=== PATIENT | male | born 1960 | race Hispanic/Latino ===

== ENCOUNTER 2019-03-22 16:04 | Emergency (ER) | payer SELFPAY ==
[~2019-03-22] VITALS: Ht 167.6 cm; Wt 80.0 kg
[2019-03-22 18:49] LABS: HEMATOCRIT 34.7 % (39.0-50.0); HEMOGLOBIN 12.2 g/dl (14.0-18.0); IMMATURE GRANULOCYTES 2.7 % (0.0-5.0); MEAN CELL VOLUME 103.9 fL CALC (80.0-100.0); MEAN CORPUSCULAR HGB 36.5 pG CALC (26.0-32.0); MEAN CORPUSCULAR HGB CONC 35.2 g/L CALC (32.0-36.0); NEUT# 15.54 thou/uL (1.82-7.42); RED BLOOD COUNT 3.34 mill/uL (4.70-6.10); RED CELL DISTRI WIDTH 14.3 % (11.5-15.5)
[2019-03-22 19:03] LABS: ACT PARTIAL THROMBO TIME 39.4 SECONDS (20.0-32.5); ALKALINE PHOSPHATASE 107 u/l (38-126); BUN 27 mg/dL (9-20); BUN/CREATININE RATIO 19 (12-20 (CALC)); CARBON DIOXIDE 23 mmol/l (22-30); CREATININE 1.4 mg/dL (0.7-1.3); GFR 52 ML/MIN (>=60 (CALC)); GFR FOR AFR.AMER. > 60 ML/MIN (>=60 (CALC)); INTERNATIONAL NORMALIZED RATIO 1.9 RATIO (0.7-1.3); PROTHROMBIN TIME 19.1 SECONDS (9.0-12.5); SGOT/AST 67 u/l (17-59); TOTAL PROTEIN 7.1 g/dL (6.3-8.2)
[2019-03-22 19:11] LABS: ALBUMIN 2.6 g/dL (3.2-5.0); ANION GAP 16 (6-22 (CALC)); BILIRUBIN, TOTAL 10.2 mg/dL (0.0-1.4); CHLORIDE 93 mmol/l (95-108); POTASSIUM 3.3 mmol/l (3.5-5.1); SODIUM 129 mmol/l (137-146)
[2019-03-22 21:53] LABS: URINE BLOOD DIPSTICK MODERATE (NEGATIVE); URINE COLOR BROWN; URINE GLUCOSE - DIPSTICK 100 mg/dL (NEGATIVE); URINE KETONE 15 mg/dL (NEGATIVE); URINE LEUK ESTERASE TRACE (NEGATIVE); URINE PROTEIN - DIPSTICK 30 mg/dL (NEG-TRACE); URINE SPECIFIC GRAVITY 1.025
[2019-03-22 21:56] LABS: URINE BILIRUBIN - DIPSTICK LARGE (NEGATIVE); URINE NITRITE - DIPSTICK POSITIVE (Negative)
[2019-03-22 22:01] LABS: URINE AMORPH SEDIMENT MODERATE hpf (NONE-FER); URINE BACTERIA FEW hpf; URINE RENAL EPITHELIAL CELLS MODERATE hpf
[2019-03-23 01:12] VITALS: BP 114/58
== END 2019-03-23 01:12 | disposition short-term general hospital (02) | DRG 603 ==
LOC: ED 16:04
PROVIDERS: Family Medicine
DX: L03.116 Cellulitis of left lower limb (principal); K70.31 Alcoholic cirrhosis of liver with ascites
CPT/HCPCS: Q9967

== ENCOUNTER 2019-05-08 00:59 | Emergency (ER) | payer SELFPAY ==
[~2019-05-08 00:59] MED LIST: ALDACTONE25 MG OR; DOESN'T KNOW MEDS; LASIX40 MG OR; NADOLOL20 MG OR; NO HOME MEDS; SPIRONOLACT100 MG OR
[2019-05-08 03:32] VITALS: BP 121/70
== END 2019-05-08 03:41 | disposition home or self-care (01) | DRG 605 ==
LOC: ED 00:59
DX: S81.802A Unspecified open wound, left lower leg, initial encounter (principal); L03.116 Cellulitis of left lower limb; X58.XXXA Exposure to other specified factors, initial encounter

== ENCOUNTER 2019-05-27 11:11 | Inpatient (IN) | payer SELFPAY ==
[~2019-05-27] VITALS: Ht 167.6 cm; Wt 73.2 kg
--- NOTE | 2019-05-27 11:11 | NUR ---
PT TO ROOM VIA EMS.
--- NOTE | 2019-05-27 11:15 | NUR ---
PT PRESENTS WITH ALTERED MENTAL STATUS AND COVERED IN SATURATED HOME COVERS WITH URINE. PT HAS A PUNGNANT ODOR COMING FROM WOUND IN LEFT MID RHODES. PT HAS A DRESSING HARD FROM WOUND SATURATION CONTENTS. PT OPENS EYES WITH VERBAL STIMULATION, GAZES INTO SPACE AND DOES NOT SAY ANY WORDS, ONLY OCCATIONAL MOANING. PT REACTS TO PAIN. WOUND VAC HAD AN ADVISORY ON IT STATING A LEAK IN SEALANT. THERE WERE WHITE CONTENTS IN VAC SPACE. UPON REMOVING SEALANT, THE WOUND HAD A MALODOR AND THE WOUND WAS SEAPING MILKY BROWN-BLOOD. THE WOUND MEASURED 15 CM ROBERTO AND WIDTH OF 22 CM AN INCH FROM BEING COMPLETELY CIRCUMFRENTIAL. IT IS ABOUT 1.5 CM IN DEPTH. NO APIDOSE TISSUE NOTED, ONLY MUSCLE WITH WHITISH GREENISH BOARDERS. PULSE UNDETECTED BUT CAP REFILL AT 4 SECS. PT AFIBRILE AT 98.3 F RECTAL TEMP. WILL CONTINUE TO MONITOR. APPARENT.
--- NOTE | 2019-05-27 12:20 | NUR ---
PT RESTING WITH EYES CLOSED. PT CHANGED OUT OF SATURATED CLOTHING AND GOWN PUT ON. PT CONTINUES TO HAVE ALTERED MENTAL STATUS AND REACTIVE TO VERBAL STIM AND PAIN.
[2019-05-27 12:37] LABS: HEMATOCRIT 31.9 % (39.0-50.0); HEMOGLOBIN 11.3 g/dl (14.0-18.0); IMMATURE GRANULOCYTES 0.2 % (0.0-5.0); MEAN CELL VOLUME 100.9 fL CALC (80.0-100.0); MEAN CORPUSCULAR HGB 35.8 pG CALC (26.0-32.0); MEAN CORPUSCULAR HGB CONC 35.4 g/L CALC (32.0-36.0); NEUT# 5.12 thou/uL (1.82-7.42); RED BLOOD COUNT 3.16 mill/uL (4.70-6.10); RED CELL DISTRI WIDTH 14.2 % (11.5-15.5)
[2019-05-27 13:14] LABS: URINE BILIRUBIN - DIPSTICK NEGATIVE (NEGATIVE); URINE BLOOD DIPSTICK TRACE-INTACT (NEGATIVE); URINE COLOR YELLOW; URINE GLUCOSE - DIPSTICK NEGATIVE (NEGATIVE); URINE KETONE NEGATIVE (NEGATIVE); URINE LEUK ESTERASE NEGATIVE (NEGATIVE); URINE NITRITE - DIPSTICK NEGATIVE (Negative); URINE PROTEIN - DIPSTICK NEGATIVE (NEG-TRACE); URINE SPECIFIC GRAVITY 1.015
--- NOTE | 2019-05-27 13:30 | NUR ---
PT LAYING IN BED WITH ANTIBIOTICS INFUSING IN BOTH IVS ONE IN EACH ARM PATENTLY. WILL CONTINUE TO MONITOR. PT CONTINUES WITH ALTERED MENTAL STATUS AND IS RESTING WITH EYES CLOTHES.
[2019-05-27 14:01] LABS: BARBITURATES NEGATIVE (NEGATIVE); COCAINE NEGATIVE (NEGATIVE); METHADONE NEGATIVE (NEGATIVE); OXCYCODONE NEGATIVE (NEGATIVE); TETRAHYDROCANNABIONOL NEGATIVE (NEGATIVE); TRICYLIC ANTIDEPRESSANTS NEGATIVE (NEGATIVE)
--- NOTE | 2019-05-27 14:30 | NUR ---
PT RESTING WITH EYES CLOTHES, ANOTHER EKG REPEATED PER MD ORDERS. PT REPOSITIONED
[2019-05-27 14:45] LABS: ALBUMIN 2.7 g/dL (3.2-5.0); ALKALINE PHOSPHATASE 101 u/l (38-126); BUN 12 mg/dL (9-20); BUN/CREATININE RATIO 21 (12-20 (CALC)); CARBON DIOXIDE 20 mmol/l (22-30); CREATININE 0.6 mg/dL (0.7-1.3); GFR > 60 ML/MIN (>=60 (CALC)); GFR FOR AFR.AMER. > 60 ML/MIN (>=60 (CALC)); POTASSIUM 3.8 mmol/l (3.5-5.1); SGOT/AST 31 u/l (17-59); SODIUM 135 mmol/l (137-146); TOTAL PROTEIN 7.1 g/dL (6.3-8.2)
[2019-05-27 14:47] LABS: ANION GAP 10 (6-22 (CALC)); BILIRUBIN, TOTAL 4.4 mg/dL (0.0-1.4); CHLORIDE 109 mmol/l (95-108)
[2019-05-27 14:57] LABS: MYOGLOBIN 43 ng/mL (0 - 121)
--- NOTE | 2019-05-27 15:30 | NUR ---
PT RESTING WITH EYES CLOSED
--- NOTE | 2019-05-27 15:59 | NUR ---
PT MORE ALERT, AND IS RESPONDING TO QUESTIONS WITH A SLURRED SPEACH. PT IS ABLE TO SAY HIS FIRST NAME BUT CANNOT RECOLLECT LAST NAME, , OR WHERE HE IS AT. PT DENIES REMEMBERING HOW HE GOT TO THE HOSPITAL. PT DENIES ANY PAIN. WILL CONTINUE TO MONITOR.
[2019-05-27 16:18] LABS: INTERNATIONAL NORMALIZED RATIO 1.5 RATIO (0.7-1.3); PROTHROMBIN TIME 15.7 SECONDS (9.0-12.5)
--- NOTE | 2019-05-27 16:40 | NUR ---
PT RESTING WITH EYES CLOSED
--- NOTE | 2019-05-27 17:40 | NUR ---
PT ALERT TO NAME FIRST AND LAST, ALSO PLACE. PT IS UNABLE TO SAY OR YEAR. PT IS AWAKE AND WATCHING TV. WILL CONTINUE TO MONITOR
--- NOTE | 2019-05-27 18:01 | NUR ---
ATTEMPTED TO CALL FOR REPORT NO ANSWER.
--- NOTE | 2019-05-27 18:51 | NUR ---
GAVE REPORT TO MARGO
--- NOTE | 2019-05-27 18:58 | NUR ---
PT TRANSPORTED TO [facility] SURG STABLE AND IN NO DISTRESS. PT CARE ASSUMED TO MARGO Admission Note Report Given to: Transported by: Wheelchair X Stretcher Transported with: X Nurse Transporter X Patent IV O2 X Adobe Layer Helper Location: ICU X MS2
[2019-05-27 19:00] VITALS: BP 144/80
--- NOTE | 2019-05-27 20:00 | NUR ---
PATIENT ADMITTED FROM ER VIA STRETCHER WITH ER STAFF IN ATTENDANCE. PATIENT IS LETHARGIC, VATICAN CITIZEN SPEAKING ONLY. NEPHEW AND FRIEND IN TO VISIT. PATIENT WITH IV SITE TO RIGHT AC-IVF NS HUNG AND INFUSING AT 150CC/HR. SALINE LOCK TO LEFT AC-SITE IS HEALTHY. EMS SITE. DRESSING TO LLE INTACT. FAMILY STATES THAT THEY CALLED THE EMS AFTER FINDING PATIENT AT HOME LETHARGIC AND CONFUSED. NOT REPONSIVE. STATES THAT THE PATIENT ALSO HAS HISTORY OF LIVER DISEASE. STATES THAT THE PATIENT WAS DISCHARGED FROM [facility] A COUPLE OF WEEKS AGO AFTER BEING THERE FOR OVER 2MONTHS FOR WOUND CARE TO LLE AND BALJEET MOONEY. STATES THAT THE LLE WOUND STARTED A COUPLE OF MONTHS AGO WHEN WORKING AT LOCAL [employer] AND HAD SPIDER BITE. STATES THAT AFTER DISCHARGED FROM [facility] THE PATIENT WAS GOING WEEKLY ON TUESDAYS BACK TO [facility] FOR WOUND CARE WITH WOUND VAC. FAMILY STATES THAT THE PATIENT WAS FINE ON WEDNESDAY BUT BECAME ALTER JUST TODAY-SAT. PATIENT IS ORIENTED TO SELF ANDKNOWS THAT HE IS IN [place]. IS UNABLE TO STATE HIS FULL NAME OR . FREGOSO CATH IS PATENT AND DRAINING DARK MARILYN URINE. PATIENT IS JAUNDICE WITH YELLOW SCLERA. STATES THAT HE IS HUNGRY. PATIENT TAKING PO FLUIDS AND TOLERATING WELL. ANOTHER LACTIC ACID WAS DRAWN PER MD ORDER AND PROTOCOL. ATTEMPT TO ORIENT PATIENT TO ROOM AND SURROUNDINGS. ATTEMPTED TO INSTRUCT ON USE OF NURSE CALL LIGHT SYSTEM AND TV REMOTE. CALL LIGHT IN REACH. BED ALRM IN PLACE FOR SAFETY. WILL CONT TO MONITOR.
--- NOTE | 2019-05-27 21:30 | NUR ---
PATIENTRESTING IN BED EATING TURKEY DINNER-MORE AWAKE. NO PROBLEMS WITH EATING. LACTIC ACID IS 2.3-NEXT LACTIC ORDERED FOR 0130 PER MD. DOCTOR AWARE OF THE TREND. BED ALARM IN PLACE. CALL LIGHT IN REACH. WILL CONT TO MONITOR.
[2019-05-27 23:59] VITALS: BP 121/66
[2019-05-28 04:08] VITALS: BP 118/66
--- NOTE | 2019-05-28 04:54 | NUR ---
PATIENT RESTING IN BED-AWAKE ALERT ORIENTED TO SELF, KNOW HE IS IN [place]. MORE ALERT THAN WHEN HE GOT HERE LAST NIGHT. STILL IS NOT ABLE TO GIVE HIS DATE OF . DRESSING REMOVED FRO LLE WOUNDS-LARGE ANTERIOR AND POSTERIOR WOUNDS. SMALL AMT OF BROWNISH RED DRAINAGE. WOUND BED RED WITH A FEW SMALL AREA OF YELLOW SLOUGH AT THE EDGES. WOUNDS CLEANSED WITH NS AND WET TO DRY NS DRESSINGS APPLIED. COVERED WITH ABDS AND SECURED WITH KERLIX. DRESSINGS WERE SECURED WITH LARGE SURGIFLEX. PHOTOS WERE TAKEN. ELEVATED LLE ELEVATED ON PILLOW. PATIENT DENIES ANY PAIN AT THIS TIME. C/O "HEARTBURN" PROVIDED WITH GINGERALE AND TOLERATING WELL. FREGOSO PATENT AND DRAINING DARK MARILYN URINE. IVF PATENT AND INFUSING VIA RIGHT AC SITE AT 150CC/HR. WATCHING TV. CALL LIGHT IN REACH. WILL CONT TO MONITOR.
[2019-05-28 07:33] VITALS: BP 123/74
--- NOTE | 2019-05-28 07:33 | NUR ---
PT SLEEPING IN BED. AWAKENED TO DO ASSESSMENT. ASKED PT FOR NAME AND PT WAS ABLE TO PROVIDE INFORMATION. WHEN ASKED WHERE HE WAS PT WAS ABLE TO SAY "[place]" AT THE HOSPITAL. PT STATES THAT HE DOES NOT REMEMBER HOW HIS LEG WOUND BEGUN, BUT THAT HE BELIEVES IT IS CORRELATED WITH HIS JOB AT THE [employer]. WHEN ASKED HOW HE IS FEELING, PT STATES HE IS FEELING GOOD AND DENIES ANY PAIN. PER PT HE HAS NOT HAD AN ALCOHOLIC BEVERAGE IN A "WHILE". JAUNDICE NOTED TO THE SCLERA OF BOTH EYES. FREGOSO CATHETER IN PLACE DRAINING VIA GRAVITY WITH YELLOW URINE NOTED IN TUBING AND A DARKER URINE NOTED IN FREGOSO COLLECTION BAG. LT LEG WOUND DRESSING CDI WITH NO SHADOWING PRESENT.PT DENIES ANY NEEDS AT THIS TIME. ABLE TO FOLLOW COMMANDS. DISCUSSED POC.ASSESSMENT COMPLETED. CALL LIGHT IN REACH. CONTINUE TO MONITOR.
--- NOTE | 2019-05-28 10:40 | NUR ---
SHAUNNA MOSCOSO AT BEDSIDE DISCUSSING POC
[2019-05-28 11:44] LABS: HEMOGLOBIN 9.9 g/dl (14.0-18.0); MEAN CELL VOLUME 103.9 fL CALC (80.0-100.0); MEAN CORPUSCULAR HGB 35.5 pG CALC (26.0-32.0); MEAN CORPUSCULAR HGB CONC 34.1 g/L CALC (32.0-36.0); RED BLOOD COUNT 2.79 mill/uL (4.70-6.10); RED CELL DISTRI WIDTH 14.1 % (11.5-15.5)
[2019-05-28 11:51] VITALS: BP 122/68
--- NOTE | 2019-05-28 12:41 | NUR ---
IN ROOM WITH SHAUNNA MOSCOSO AND DR ROBLES. PT UNABLE TO RECALL HIS AT THIS TIME OR HIS EXACT LOCATION. REORIENTED PT TO PLACE, SELF AND TIME. WHEN ASKED IF HE DID NOT REMEMBER HIS BIRTHDAY HE CONTINUED TO SAY "7" .
--- NOTE | 2019-05-28 13:16 | NUR ---
LANA IV INTITIATED. ASKED PT TO STATE HIS NAME AND , PT STATED NAME CORRECTLY BUT WAS UNABLE TO GIVE CORRECT , REORIENTED PT. PT DENIES ANY PAIN AT THIS TIME.
--- NOTE | 2019-05-28 15:04 | NUR ---
S: FIORDALIZA COLON is a 59 M who presents with ams. He has a history of LEG WOUND . All medications in patient's chart were reviewed. O: VS: BP 122/68 P 75, RR 16,T 98 W 73kg>, HT66 IN>, Scr=0.6,CrCl= >90ml/min> A: Blood culture <is pending/show> which is sensitive to <>. Urine culture <is pending/show> which is sensitive to <>. P: Patient is on VANCOMYCIN AND ZOSYN 3.375 Q6H . Vancomycin ordered for pharmacy to dose. Start Vancomycin 1250MG IV Q12H. Vancomycin trough is drawn before the 4th dose on 05/29/19 @0030. Vancomycin goal trough is between <10-15 mcg/ml>. Pharmacy will follow and or advise on antibiotics use as needed. MITCHELL PERRY PHARMD
[2019-05-28 15:10] VITALS: BP 142/81
--- NOTE | 2019-05-28 18:00 | NUR ---
DRESSING CHANGE TO LLE. PT TOLERATED WELL
[2019-05-28 18:39] VITALS: BP 119/71
--- NOTE | 2019-05-28 20:00 | NUR ---
ADDENDUM, PT SR 80'S ON TELE. LAST SET OF VS @ 1839- 97.4, 87bpm, RR19, B/P 119/71mmHg, O2 SAT 100% ON ROOM AIR.
--- NOTE | 2019-05-28 20:00 | NUR ---
PT SLEEPING, APPEARS COMFORTABLE AND IN NO DISTRESS. WAKES EASILY. ASSESMENT COMPLETE. PT IS A/OX3 @ THIS TIME W/ NEG CIWA. IV SITES INTACTX2 TO B/L AC'S. NS INFUSING @150ML/H. DRESSING TO LLE REMAINS C/D/I. PT DENIES PAIN OR DISCOMFORT. FREGOSO TUBING SECURED, UNKINKED, AND UNOBSTRUCTED. PLAN OF CARE REVIEWED, PT VERBALIZES UNDERSTANDING AND DENIES QUESTIONS @ THIS TIME. PT REQUEST SODA,RUPINDER SURESH PROVIDED. DENIES FURTHER NEEDS @ THIS TIME. CALL GAY WITHIN REACH, AGREES TO CALL PRN. BED IN LOW POSITION W/ BEDRAILS UPX2 AND BED ALARM ON.
--- NOTE | 2019-05-28 22:31 | NUR ---
PT APPEARS TO BE SLEEPING COMFORTABLY, NO APPARENT DISTRESS. RESP REG&UNLABORED. CALL GAY REMAINS WITHIN REACH. SAFETY AND FALL PRECAUTIONS REMAIN IN PLACE/UNCHANGED.
[2019-05-28 23:55] VITALS: BP 116/66
--- NOTE | 2019-05-29 | NUR ---
PT SLEEPING, APPEARS COMFORTABLE AND IN NO DISTRESS. RESP REG&UNLABORED. WAKES EASILY. NO CHANGES IN PHYSICAL ASSESMENT. VS ASSESED, VS STABLE- 97.9F,89bpm RR21,119/71mmHg,[id number]%ON RA, SR90'S ON TELE. DENIES PAIN. DENIES NEEDS AT THIS TIME. SAFETY AND FALL PRECAUTION REMAIN IN PLACE. CALL GAY WITHIN REACH, AGREES TO CALL PRN.
--- NOTE | 2019-05-29 00:30 | NUR ---
RADIO MACHINIST IN ROOM TO DRAW PT'S VANCO TROUGH LEVEL.
--- NOTE | 2019-05-29 01:00 | NUR ---
PT REPORTS NAUSEA AND FEELS LIKE HE HAS TO HAVE A BM. EMESIS BASIS PROVIDED. ASSISTED UP TO BATHROOM, +1 STANDY ASSIST, GAIT IS UNSTEADY. PT PASSED LARGE AMOUNT LIQUID STOOL. PARTIAL BED BATH AND LINEN CHANGE COMPLETE. PT BACK IN BED.STATES NAUSEA HAS PASSED. EMESIS BAG PROVIDED. DENIES FURTHER NEEDS. CALL GAY WITHIN REACH, AGREES TO CALL PRN.
--- NOTE | 2019-05-29 01:42 | NUR ---
VANCO TROUGH LEVEL RECEIVED, LEVEL IS 11. VANCO GIVEN, SEE MAR.
[2019-05-29 04:15] VITALS: BP 125/74
--- NOTE | 2019-05-29 04:20 | NUR ---
PT SLEEPING, APPEARS COMFORTABLE AND IN NO DISTRESS. RESP REG&UNLABORED. WAKES EASILY. NO CHANGES IN PHYSICAL ASSESMENT. VS ASSESED, VS STABLE- 97.2 F, 81bpm, 18RR, 119/71mmHg, [id number]% ON RA,SR 70'S ON TELE. DENIES PAIN. DENIES NEEDS AT THIS TIME. SAFETY AND FALL PRECAUTION REMAIN IN PLACE. CALL GAY WITHIN REACH, AGREES TO CALL PRN.
--- NOTE | 2019-05-29 06:00 | NUR ---
DRESSING TO LLE REMAINS C/D/I. DRESSING CHANGE HELD THIS AM. WOUND CARE CONSULTED AND EXPECTED TO COME IN AND EVALUATE WOUND.
[2019-05-29 08:00] VITALS: BP 118/71
--- NOTE | 2019-05-29 08:00 | NUR ---
PT SEEN AWAKE, ALERT, LUXEMBOURGISH ONLY. PT AMBULATORY TO BR WITH STANDBY ASSIST. LUNGS CLEAR, RA. BM THIS AM. LLE IN PLACE, IVF RUNNING. URINE MARILYN IN COLOR, FREGOSO CATHETER.
[2019-05-29 11:11] VITALS: BP 143/84
--- NOTE | 2019-05-29 12:00 | NUR ---
PT RESTS IN THE BED, NO DISTRESS. DR VALENTINE SAW PT, WOUND CARE ORDERS RECEIVED AND CARRIED OUT.
[2019-05-29 15:20] VITALS: BP 142/81
--- NOTE | 2019-05-29 16:00 | NUR ---
PT TO U/S AND BACK. PT REMAINS AT REST IN THE BED, OCCASIONAL TRIP TO THE BR WITH ASSIST FOR LOOSE BM. NO REPORT OF PAIN.
[2019-05-29 18:58] VITALS: BP 124/72
--- NOTE | 2019-05-29 19:10 | NUR ---
REPORT RECEIVED FROM FLEX VAZQUEZ. PT RESTING IN BED. NO S/S OF DISTRESS AT THIS TIME. SAFETY PRECAUTIONS IN PLACE. WILL CONTINUE TO MONITOR.
--- NOTE | 2019-05-29 21:10 | NUR ---
PT RESTING IN BED. RESPIRATIONS EVEN AND UNLABORED ON RA. LUNGS SOUND CLEAR. PEDAL PULSES WEAK. PT DENIES ANY PAIN. SAFETY PRECAUTIONS IN PLACE. WILL CONTINUE TO MONITOR.
--- NOTE | 2019-05-30 00:10 | NUR ---
PT RESTING IN BED WITH EYES CLOSED. RESPIRATIONS EVEN AND UNLABORED ON RA. NO S/S OF DISTRESS AT THIS TIME WILL CONTINUE TO MONITOR.
[2019-05-30 04:45] VITALS: BP 110/63
--- NOTE | 2019-05-30 05:12 | NUR ---
PT RESTING IN BED. FREGOSO DRAINING TO GRAVITY. RESPIRATIONS EVEN AND UNLABORED ON RA. SAFETY PRECAUTIONS IN PLACE. WILL CONTINUE TO MONITOR.
[2019-05-30 05:24] LABS: HEMATOCRIT 25.1 % (39.0-50.0); HEMOGLOBIN 8.5 g/dl (14.0-18.0); MEAN CORPUSCULAR HGB 35.6 pG CALC (26.0-32.0); MEAN CORPUSCULAR HGB CONC 33.9 g/L CALC (32.0-36.0); RED BLOOD COUNT 2.39 mill/uL (4.70-6.10); RED CELL DISTRI WIDTH 14.1 % (11.5-15.5)
[2019-05-30 05:50] LABS: ALBUMIN 2.1 g/dL (3.2-5.0); ALKALINE PHOSPHATASE 98 u/l (38-126); ANION GAP 8 (6-22 (CALC)); BUN 8 mg/dL (9-20); BUN/CREATININE RATIO 15 (12-20 (CALC)); CARBON DIOXIDE 20 mmol/l (22-30); CHLORIDE 115 mmol/l (95-108); CREATININE 0.5 mg/dL (0.7-1.3); GFR > 60 ML/MIN (>=60 (CALC)); GFR FOR AFR.AMER. > 60 ML/MIN (>=60 (CALC)); POTASSIUM 3.3 mmol/l (3.5-5.1); SGOT/AST 29 u/l (17-59); SODIUM 140 mmol/l (137-146); TOTAL PROTEIN 5.9 g/dL (6.3-8.2)
[2019-05-30 06:06] LABS: BILIRUBIN, TOTAL 2.3 mg/dL (0.0-1.4)
[2019-05-30 08:00] VITALS: BP 118/74
--- NOTE | 2019-05-30 09:00 | NUR ---
PT ALERT AND ORIENTED X 3. LUNGS CLEAR, RA. ABDOMEN DISTENDED SOFT, BM TODAY. FREGOSO CATHETER HAS BEEN REMOVED PER EDP VERBAL ORDER. URINAL AT BEDSIDE. NO DISTRESS, NO COMPLAINTS.
[2019-05-30 10:30] VITALS: BP 125/74
--- NOTE | 2019-05-30 14:00 | NUR ---
LLE DRESSING CHANGED, PT TOLERATED WELL. PT CONTINUES TO REST IN THE BED, NO DISTRESS, NO COMPLAINTS.
--- NOTE | 2019-05-30 16:06 | NUR ---
PT CONTINUES TO REST IN THE BED IN NO ACUTE DISTRESS. CASE MGMT HAS INTERVIEWED PT FOR WHEN HE IS DISCHARGED. PT IS ESTONIAN ONLY.
[2019-05-30 16:10] VITALS: BP 123/79
--- NOTE | 2019-05-30 19:10 | NUR ---
REPORT RECEIVED FROM FLEX VAZQUEZ. PT RESTING IN BED. RESPIRATIONS EVEN AND UNLABORED ON RA. NO S/S OF DISTRESS AT THIS TIME. WILL CONTINEU TO MONITOR.
[2019-05-30 19:46] VITALS: BP 118/66
--- NOTE | 2019-05-30 22:05 | NUR ---
PT RESTING IN BED, RESPIRATIONS EVEN AND UNLABORED ON RA. LUNGS SOUND CLEAR. PEDAL PULSES WEAK. SAFETY PRECAUTIONS IN PLACE. WILL CONTINUE TO MONITOR.
[2019-05-31] VITALS (7 sets, daily range): BP systolic 95–129; BP diastolic 58–81
--- NOTE | 2019-05-31 00:10 | NUR ---
PT RESTING IN BED. NO S/S OF DISTRESS AT THIS TIME. SAFETY PRECAUTIONS IN PLACE. WILL CONTINUE TO MONITOR.
--- NOTE | 2019-05-31 03:48 | NUR ---
PT RESTING IN BED. NO S/S OF DISTRESS AT THIS TIME. SAFETY PRECAUTIONS IN PLACE. WILL CONTINUE TO MONITOR.
[2019-05-31 06:01] LABS: ALKALINE PHOSPHATASE 87 u/l (38-126); ANION GAP 7 (6-22 (CALC)); BILIRUBIN, TOTAL 2.4 mg/dL (0.0-1.4); BUN 7 mg/dL (9-20); BUN/CREATININE RATIO 13 (12-20 (CALC)); CARBON DIOXIDE 20 mmol/l (22-30); CHLORIDE 114 mmol/l (95-108); CREATININE 0.5 mg/dL (0.7-1.3); GFR > 60 ML/MIN (>=60 (CALC)); GFR FOR AFR.AMER. > 60 ML/MIN (>=60 (CALC)); POTASSIUM 3.4 mmol/l (3.5-5.1); SGOT/AST 34 u/l (17-59); SODIUM 138 mmol/l (137-146); TOTAL PROTEIN 5.7 g/dL (6.3-8.2)
--- NOTE | 2019-05-31 08:00 | NUR ---
PT IS AWAKE, ALERT, ORIENTED. PT AMBULATORY IN ROOM WITH STANDBY ASSIST. LUNGS CLEAR, RA. PT SHOWERED THIS MORNING, TOLERATED WELL.
--- NOTE | 2019-05-31 13:00 | NUR ---
PT HAS BEEN SEEN BY DR VALENTINE FROM WOUND CARE, DRESSING CHANGED. SHE ASKED THAT NO DRESSING CHANGES UNTIL WEDNESDAY WHEN SHE COMES AGAIN. PT TAKING NAPS OFF AND ON TODAY.
--- NOTE | 2019-05-31 17:10 | NUR ---
PT CONTINUES SLEEPING THROUGHOUT THE DAY, WAKENING TO USE BR. NO COMPLAINTS, NO DISTRESS NOTED.
--- NOTE | 2019-05-31 21:15 | NUR ---
ASSESMENT COMPLETE. VS ELLIE, VSS-98.3F, 87bpm, 18RR, 129/81mmHg, 100% ON RA. SINUS RYTHM 90S ON TELEMETRY. PLAN OF CARE REVIEWED. PT VERBALIZES UNDERSTANDING DENIES QUESTIONS. REPORTS NAUSEA, AND HEARTBURN. PT ATTRIBUTES SYMPTOMS TO LACTULOSE. SPOKE W/ DR. ROBLES AND ORDERS RECEIVED FOR ZOFRAN, PROTONIX AND TUMS, SEE MAR. PT DENIES PAIN OR DISCOMFORT. PT DENIES FURTHER NEEDS @ THIS TIME. CALL GAY WITHIN REACH, AGREES TO CALL PRN. BED LOCKED IN LOW POSITION W/ TOP BEDRAILS UPX2. PT'S ITEMS WITHIN REACH.
--- NOTE | 2019-05-31 23:45 | NUR ---
PT APPERS TO BE SLEEPING COMFORTABLY. NO APPARENT DISTRESS. RESP REG & UNLABORED. PT WAKES EASILY. NO CHANGE FROM INITIAL ASSESMENT. DENIES NEEDS @ THIS TIME. REPORTS NAUSEA AND HEART BURN RESOLVED. CALL GAY WITHIN REACH, AGREES TO CALL PRN. SAFETY/FALL INTERVENTIONS REMAIN IN PLACE. REMAINS SR IN THE 90'S ON TELEMETRY. VS REMAIN STABLE 99.3F, 88bpm, RR20, 117/73mmHg, 97% ON RA.
[2019-06-01 03:50] VITALS: BP 119/70
--- NOTE | 2019-06-01 04:10 | NUR ---
PT APPERS TO BE SLEEPING COMFORTABLY. NO APPARENT DISTRESS. RESP REG & UNLABORED. PT WAKES EASILY. NO CHANGE FROM INITIAL ASSESMENT. VS ASSESED, VSS-98.7F, 68bpm, 20RR, 119/70mmHg, 100% ON RA. NSR 80'S ON TELEMETRY. DENIES NEEDS @ THIS TIME. CALL GAY WITHIN REACH, AGREES TO CALL PRN. BED LOCKED IN LOW POSITION W/ TOP BEDRAILS UPX2. PT'S ITEMS WITHIN REACH.
[2019-06-01 07:30] VITALS: BP 106/64
--- NOTE | 2019-06-01 07:30 | NUR ---
PATIENT A/OX4, NO C/O PAIN, NO S/S RESP DISTRESS, PATIENT ON ROOM AIR, PATIENT HEART RHYTHM NORMAL SINUS, PATIENT ABD SOFT AND DISTENTED, PATIENT ON LACTOSE TO TREAT AMMONIA LEVEL, CIWA 0, PATIENT LAST BOWEL MOVEMENT 05/31/19, WILL CONTINUE TO MONITOR PATIENT, CALL LIGHT WITHIN REACH
[2019-06-01 11:25] VITALS: BP 117/70
--- NOTE | 2019-06-01 12:00 | NUR ---
PATIENT A/O X4, NO S/S RESP DISTRESS, PATIENT ON ROOM AIR, PATIENT NO C/O PAIN, PATIENT HEART RHYTHM IS NORMAL SINUS, PATIENT TOLERATED IV ANTIBOTICS, WILL CONTINUE TO MONITOR PATIENT CALL LIGHT WITHIN REACH
[2019-06-01 16:10] VITALS: BP 119/66
--- NOTE | 2019-06-01 17:00 | NUR ---
PATIENT A/OX4, NO C/O PAIN, NO S/S RESP DISTRESS, PATIENT ON ROOM AIR, PATIENT HEART RHYTHM IS NORMAL SINUS, WILL CONTINUE TO MONITOR PATIENT CALL LIGHT WITHIN REACH
[2019-06-01 18:42] VITALS: BP 126/75
--- NOTE | 2019-06-01 20:00 | NUR ---
PT RESTING IN BED, NO SIGNS OF DISTRESS NOTED, RESP EVEN AND UNLABORED. PT SWEDISH SPEAKING ONLY, CARDIAC CATH TECHNOLOGIST SPEAKS SWEDISH. DISCUSSED POC, PT VERBALIZED UNDERSTANDING. DRESSING TO LLE BLOOD; SHADOWING NOTED TO DRESSING. OLD DRESSING REINFORCED WITH [place] WRAP. PT TOLERATED WELL, ASSESSMENT COMPLETED, CALL LIGHT IN REACH,CONTINUE TO MONITOR.
--- NOTE | 2019-06-01 23:15 | NUR ---
PT RESTING IN BED, IV ANTIBIOTIC HUNG, PT VOICES NO NEEDS OR COMPLAINTS AT THIS TIME,CALL LIGHT IN REACH,CONTINUE TO MONITOR.
[2019-06-02 00:08] VITALS: BP 101/53
[2019-06-02 04:10] VITALS: BP 100/54
--- NOTE | 2019-06-02 04:35 | NUR ---
PT RESTING IN BED WITH EYES CLOSED, NO SIGNS OF DISTRESS NOTED, RESP EVEN AND UNLABORED. CALL LIGHT IN REACH,CONTINUE TO MONITOR.
[2019-06-02 05:52] LABS: HEMATOCRIT 26.6 % (39.0-50.0); MEAN CELL VOLUME 105.6 fL CALC (80.0-100.0); MEAN CORPUSCULAR HGB 35.7 pG CALC (26.0-32.0); MEAN CORPUSCULAR HGB CONC 33.8 g/L CALC (32.0-36.0); RED BLOOD COUNT 2.52 mill/uL (4.70-6.10); RED CELL DISTRI WIDTH 13.8 % (11.5-15.5)
[2019-06-02 06:08] LABS: INTERNATIONAL NORMALIZED RATIO 1.7 RATIO (0.7-1.3); PROTHROMBIN TIME 17.4 SECONDS (9.0-12.5)
[2019-06-02 06:13] LABS: ALKALINE PHOSPHATASE 76 u/l (38-126); ANION GAP 9 (6-22 (CALC)); BILIRUBIN, TOTAL 2.6 mg/dL (0.0-1.4); BUN 7 mg/dL (9-20); BUN/CREATININE RATIO 13 (12-20 (CALC)); CARBON DIOXIDE 21 mmol/l (22-30); CHLORIDE 111 mmol/l (95-108); CREATININE 0.5 mg/dL (0.7-1.3); GFR > 60 ML/MIN (>=60 (CALC)); GFR FOR AFR.AMER. > 60 ML/MIN (>=60 (CALC)); POTASSIUM 3.3 mmol/l (3.5-5.1); SGOT/AST 32 u/l (17-59); SODIUM 137 mmol/l (137-146); TOTAL PROTEIN 5.6 g/dL (6.3-8.2)
--- NOTE | 2019-06-02 07:30 | NUR ---
REPORT RECEIVED FROM BENJA LAZO. PT SITTING UPRIGHT IN BED. DENIES PAIN. REPORTING OF CONCERNS ENCOURAGED. CALL LIGHT REVIEWED AND IN REACH. PLAN OF CARE DISCUSSED. PT. GREENLANDIC SPEAKING ONLY. TRANSLATION PER BENJA LAZO.
[2019-06-02 08:06] VITALS: BP 117/72
--- NOTE | 2019-06-02 08:30 | NUR ---
DR. VALENTINE IN TO SEE PT. DRESSING TO LEFT LOWER LEG COMPLETED BY DR. VALENTINE. OK TO DISCHARGE PT. HOME AND FOLLOW UP W/ DR. VALENTINE ON WEDNESDAY @ 1499.
[2019-06-02 11:54] VITALS: BP 128/76
[2019-06-02] MEDS ORDERED: LACTULOSE10 GM/15 M PO (12:49)
[2019-06-02] MEDS ORDERED: LASIX 20 MG TAB20 MG PO (12:49)
[2019-06-02] MEDS ORDERED: PANTOPRAZOLE SO40 M1 PO (12:49)
[2019-06-02] MEDS ORDERED: AMOXICILLIN500 MG PO (12:50)
--- NOTE | 2019-06-02 13:00 | NUR ---
DR. DEAN IN TO SEE PT. DISCHARGE HOME DISCUSSED AND AGREED UPON BY BOTH.
--- NOTE | 2019-06-02 14:45 | NUR ---
DISCHARGE INSTRUCTIONS TRANSLATED BY FLEX VAZQUEZ. PT STATES UNDERSTANDING.
--- NOTE | 2019-06-02 15:00 | NUR ---
Discharge instructions given. Patient verbalizes understanding of same. Discharged in stable condition via Wheelchair to Home with *Other. All belongings sent with pt.
== END 2019-06-02 15:00 | disposition home or self-care (01) | DRG 433 ==
LOC: ED 11:11 → ED-I 17:14 → ED 17:27 → MS2 17:28
PROVIDERS: Emergency Medicine; Internal Medicine; Nurse Practitioner Family; ADMIT Internal Medicine; ATTEND Internal Medicine
PROC: 0T9B70Z Drainage of Bladder with Drainage Device, Via Natural or Artificial Opening (ICD-10-PCS; principal; 2019-05-27)
PROC: 0HDLXZZ Extraction of Left Lower Leg Skin, External Approach (ICD-10-PCS; 2019-05-31)
DX: K70.40 Alcoholic hepatic failure without coma (principal); I87.332 Chronic venous hypertension (idiopathic) with ulcer and inflammation of left lower extremity; L97.829 Non-pressure chronic ulcer of other part of left lower leg with unspecified severity; L03.116 Cellulitis of left lower limb; D68.4 Acquired coagulation factor deficiency; K70.31 Alcoholic cirrhosis of liver with ascites; F10.20 Alcohol dependence, uncomplicated; N62 Hypertrophy of breast; B95.2 Enterococcus as the cause of diseases classified elsewhere; Z87.891 Personal history of nicotine dependence
CPT/HCPCS: J3370

== ENCOUNTER 2019-06-10 17:23 | Inpatient (IN) | payer SELFPAY ==
[~2019-06-10] VITALS: Ht 167.6 cm; Wt 92.2 kg
[~2019-06-10 17:23] MED LIST changes: +AMOXICILLIN500 MG PO; +LACTULOSE10 GM/15 M PO; +LASIX 20 MG TAB20 MG PO; +PANTOPRAZOLE SO40 M1 PO
--- NOTE | 2019-06-10 17:23 | NUR ---
PT ARRIVES [place] NO DISTRESS
[2019-06-10 18:18] LABS: HEMATOCRIT 26.9 % (39.0-50.0); HEMOGLOBIN 9.1 g/dl (14.0-18.0); IMMATURE GRANULOCYTES 0.2 % (0.0-5.0); MEAN CELL VOLUME 104.3 fL CALC (80.0-100.0); MEAN CORPUSCULAR HGB 35.3 pG CALC (26.0-32.0); MEAN CORPUSCULAR HGB CONC 33.8 g/L CALC (32.0-36.0); NEUT# 2.03 thou/uL (1.82-7.42); RED BLOOD COUNT 2.58 mill/uL (4.70-6.10); RED CELL DISTRI WIDTH 14.3 % (11.5-15.5)
[2019-06-10 18:34] LABS: ACT PARTIAL THROMBO TIME 38.3 SECONDS (20.0-32.5); INTERNATIONAL NORMALIZED RATIO 1.7 RATIO (0.7-1.3); PROTHROMBIN TIME 17.1 SECONDS (9.0-12.5)
[2019-06-10 18:37] LABS: ALBUMIN 2.4 g/dL (3.2-5.0); AMYLASE 73 u/l (30-110); BUN 10 mg/dL (9-20); BUN/CREATININE RATIO 18 (12-20 (CALC)); CHLORIDE 105 mmol/l (95-108); CREATININE 0.6 mg/dL (0.7-1.3); ETHYL ALCOHOL 0 mg/dl (0-30); GFR > 60 ML/MIN (>=60 (CALC)); GFR FOR AFR.AMER. > 60 ML/MIN (>=60 (CALC)); LIPASE 146 u/l (23-300); POTASSIUM 3.7 mmol/l (3.5-5.1); SGOT/AST 34 u/l (17-59); SODIUM 136 mmol/l (137-146); TOTAL PROTEIN 6.5 g/dL (6.3-8.2)
[2019-06-10 18:38] LABS: ALKALINE PHOSPHATASE 118 u/l (38-126); ANION GAP 8 (6-22 (CALC)); CARBON DIOXIDE 27 mmol/l (22-30)
--- NOTE | 2019-06-10 18:45 | NUR ---
PT RESTING QUIETLY ON STRETCHER, WARM 8LANKET GIVEN, CALL LIGHT WITHIN REACH. [id number] VERY DISTENDED
--- NOTE | 2019-06-10 18:51 | NUR ---
VSS, PT CONTINUES TO REST WITH EYES CLOSED.
--- NOTE | 2019-06-10 20:35 | NUR ---
PT RESTING IN 8ED [id number] NO S/S OF ANY ACUTE DISTRESS NOTED AT THIS TIME.
--- NOTE | 2019-06-10 22:31 | NUR ---
PT [id number] IS VERY DISTENDED, PT STATES HAVING 0/10 PAIN IN [id number] AT THIS TIME.
[2019-06-11] VITALS (11 sets, daily range): BP systolic 117–147; BP diastolic 62–78
--- NOTE | 2019-06-11 03:13 | NUR ---
PT RESTING IN BED AT THIS TIME WITH EYES CLOSED. PT HAS NO S/S OF ANY ACUTE DISTRESS NOTED AT THIS TIME. BREATHING EASY AND UNLABORED. ABDOMEN DISTENTION PRESENT, BOWEL SOOUNDS HYPOACTIVE. PT 0/10 ON FACES PAIN SCALE.
--- NOTE | 2019-06-11 07:00 | NUR ---
SHIFT CHANGE REPORT, PT SLEEPING BUT AWAKENS TO VERBAL STIMULI, C/O "POKITO" ABDOMINAL PAIN, ALERT AND ORIENTED, DRESSING TO LEFT LOWER LEG IN PLACE WITH VISIBLE DRAINAGE UNDER DRESSING, PT STATES HIS NEXT DRESSING DAY IS TOMORROW, CALL GAY IN REACH, WILL CONTINUE TO MONITOR.
[2019-06-12 04:06] VITALS: BP 109/63
[2019-06-12 07:04] LABS: INTERNATIONAL NORMALIZED RATIO 1.6 RATIO (0.7-1.3); PROTHROMBIN TIME 16.1 SECONDS (9.0-12.5)
--- NOTE | 2019-06-12 07:25 | NUR ---
PT APPEARS TO BE SLEEPING IN SEMI FOWLERS POSITION;NO S/S OF DISTRESS NOTED;RESPIRATIONS EVEN AND UNLABORED ON RA;ALL SAFETY PRECAUTIONS IN PLACE WITH BED IN THE LOWEST POSITION AND CALL LIGHT IN REACH;WILL CONTINUE TO MONITOR
[2019-06-12 08:40] VITALS: BP 115/69
--- NOTE | 2019-06-12 08:40 | NUR ---
PT RESTING IN SEMI FOWLERS POSITION,A&O X3;PT IS ESTONIAN SPEAKING ONLY,TRANSLATION PROVIDED BY GEORGE CUTLER RN;PT DENIES ANY CURRENT PAIN OR DISCOMFORTS,PAIN SCALE AND REPORTING EDUCATED;RESPIRATIONS EVEN AND UNLABORED ON RA;ABDOMEN DISTENDED/FIRM ON PALPATION AND ACTIVE IN ALL 4 QUADRANTS;STRONG PEDAL PULSES;DRESSING TO RLE CDI;#20G TO RAC FLUSHED AND PATENT,SITE APPEARS HEALTHY;PT DENIES ANY ADDITIONAL NEEDS AND IS ENCOURAGED TO CALL FOR ASSISTANCE IF NEEDED;CALL LIGHT IN REACH;WILL CONTINUE TO MONITOR
--- NOTE | 2019-06-12 08:56 | NUR ---
INFORMED CONSENT OBTAINED AT THIS TIME FOR PARACENTESIS. TRANSLATION PROVIDED BY FLEX MONTAGUE.
[2019-06-12 10:27] LABS: URINE BILIRUBIN - DIPSTICK NEGATIVE (NEGATIVE); URINE BLOOD DIPSTICK TRACE-INTACT (NEGATIVE); URINE COLOR YELLOW; URINE GLUCOSE - DIPSTICK NEGATIVE (NEGATIVE); URINE KETONE NEGATIVE (NEGATIVE); URINE LEUK ESTERASE NEGATIVE (NEGATIVE); URINE NITRITE - DIPSTICK NEGATIVE (Negative); URINE PROTEIN - DIPSTICK NEGATIVE (NEG-TRACE); URINE SPECIFIC GRAVITY 1.015
--- NOTE | 2019-06-12 11:29 | NUR ---
AT BEDSIDE PERFORMING PARACENTISIS
--- NOTE | 2019-06-12 12:30 | NUR ---
PT APPEARS TO BE SLEEPING IN SUPINE POSITION;RESPIRATIONS EVEN AND UNLABORED ON RA;NO S/S OF DISTRESS NOTED;IV SITE PATENT;ASSESSMENT REMAINS UNCHANGED AT THIS TIME;CALL LIGHT IN REACH;WILL CONTINUE TO MONITOR
[2019-06-12 15:24] VITALS: BP 114/64
--- NOTE | 2019-06-12 15:30 | NUR ---
PT RESTING IN SEMI FOWLERS POSITION;RESPIRATIONS REMAIN EVEN AND UNLABORED ON RA;PT DENIES ANY CURRENT PAIN OR NEEDS;IV SITE PATENT;PT ENCOURAGED TO CALL FOR ASSISTANCE IF NEEDED;FALL PRECAUTIONS IN PLACE WITH CALL LIGHT IN REACH;WILL CONTINUE TO MONITOR
--- NOTE | 2019-06-12 17:30 | NUR ---
SPOKE WITH KEVYN,ANRP AT POSSIBLE WOUND CARE CONSULT. ANRP TO PLACE CONSULT FOR WOUND CARE TO [facility]
[2019-06-12 18:40] VITALS: BP 108/64
--- NOTE | 2019-06-12 19:05 | NUR ---
REPORT RECEIVED FROM BENJA OLIVERA. PT RESTING IN BED NO S/S OF DISTRESS AT THIS TIME. SAFETY PRECAUTIONS IN PLACE. WILL CONTINUE TO MONITOR.
--- NOTE | 2019-06-12 20:45 | NUR ---
PT RESTING IN BED. RESPIRATIONS EVEN AND UNLABORED ON RA. LUNGS SOUND DIMINISHED. PEDAL PULSES WEAK. PT DENIES ANY PAIN OR DISCOMFORT AT THIS TIME. SAFETY PRECAUTIONS IN PLACE. WILL CONTINUE TO MONITOR.
--- NOTE | 2019-06-13 00:54 | NUR ---
NO S/S OF DISTRESS AT THIS TIME.
--- NOTE | 2019-06-13 03:51 | NUR ---
NO S/S OF DISTRESS AT THIS TIME. WILL CONTINUE TO MONITOR
[2019-06-13 04:05] VITALS: BP 120/72
--- NOTE | 2019-06-13 07:15 | NUR ---
REPORT RECEIVED FROM FLEX REESE;PT APPEARS TO BE SLEEPING IN SEMI FOWLERS POSITION;RESPIRATIONS EVEN AND UNLABORED ON RA;NO S/S OF DISTRESS NOTED;ALL SAFETY PRECAUTIONS IN PLACE WITH BED IN THE LOWEST POSITION AND CALL LIGHT IN REACH;WILL CONTINUE TO MONITOR
[2019-06-13 08:39] VITALS: BP 102/72
--- NOTE | 2019-06-13 08:40 | NUR ---
PT RESTING IN SEMI FOWLERS POSITION,A&O X3;PT IS NOTED TO BE CZECH SPEAKING ONLY,TRANSLATION PROVIDED BY FLEX MONTAGUE;PT DENIES ANY CURRENT NEEDS,PAIN SCALE AND REPORTING EDUCATED;RESPIRATIONS EVEN AND UNLABORED ON RA;ABDOMEN DISTENDED/SOFT ON PALPATION AND ACTIVE IN ALL 4 QUADRANTS;WEAK PEDAL PULSES;DRESSING TO LLE CDI;#20G TO RAC FLUSHED AND PATENT,SITE APPEARS HEALTHY;PT DENIES ANY ADDITIONAL NEEDS AT THIS TIME AND IS ENCOURAGED TO CALL FOR ASSISTANCE IF NEEDED;FALL PRECAUTIONS IN PLACE WITH CALL LIGHT IN REACH;WILL CONTINUE TO MONITOR
--- NOTE | 2019-06-13 10:19 | NUR ---
AT BEDSIDE DISCUSSING POC WITH PT.
--- NOTE | 2019-06-13 11:35 | NUR ---
PT APPEARS TO BE SLEEPING IN SEMI FOWLERS POSITION;RESPIRATIONS EVEN AND UNLABORED ON RA;NO S/S OF DISTRESS NOTED;IV SITE PATENT;ASSESSMENT REMAINS UNCHANGED AT THIS TIME;ALL SAFETY PRECAUTIONS IN PLACE WITH BED IN THE LOWEST POSITION AND CALL LIGHT IN REACH;WILL CONTINUE TO MONITOR
[2019-06-13] MEDS ORDERED: ALDACTONE50 MG PO (14:43)
[2019-06-13] MEDS ORDERED: LASIX 20 MG TAB20 MG PO (14:43)
[2019-06-13 15:52] VITALS: BP 115/72
--- NOTE | 2019-06-13 16:40 | NUR ---
PT RESTING IN SEMI FOWLERS POSITION;RESPIRATIONS EVEN AND UNLABORED ON RA;PT DENIES ANY CURRENT PAIN OR DISCOMFORTS;IV SITE PATENT;ENCOURAGED TO CALL FOR ASSISTANCE IF NEEDED;CALL LIGHT IN REACH;WILL CONTINUE TO MONITOR
--- NOTE | 2019-06-13 19:05 | NUR ---
REPORT RECEIVED FROM BENJA OLIVERA. PT RESTING IN BED. NO S/S OF DISTRESS AT THIS TIME. SAFETY PRECAUTIONS IN PLACE. WILL CONTINUE TO MONITOR.
--- NOTE | 2019-06-13 21:15 | NUR ---
PT RESTING IN BED. RESPIRATIONS EVEN AND UNLABORED ON RA. LUNGS SOUND CLEAR. DRESSING TO LLE CDI. PT DENIES ANY PAIN AT THIS TIME. SAFETY PRECAUTIONS IN PLACE. WILL CONTINUE TO MONITOR.
[2019-06-13 21:20] VITALS: BP 113/68
--- NOTE | 2019-06-14 00:08 | NUR ---
PT RESTING IN BED NO S/S OF DISTRESS AT THIS TIME. SAFETY PRECAUTIONS IN PLACE. WILL CONTINUE TO MONITOR.
--- NOTE | 2019-06-14 03:12 | NUR ---
PT RESTING IN BED NO S/S OF DISTRESS AT THIS TIME.
[2019-06-14 04:50] VITALS: BP 109/70
--- NOTE | 2019-06-14 08:00 | NUR ---
Head to toe assessment completed. No skin issues noted. Lung sounds clear. Pain rated as 0 out of 10. Adb area soft and nontender. No Resp. distriss noted.
[2019-06-14] MEDS ORDERED: LASIX 20 MG TAB20 MG PO (12:41)
[2019-06-14] MEDS ORDERED: LACTULOSE10 GM/15 M PO (12:41)
[2019-06-14] MEDS ORDERED: ALDACTONE50 MG PO (12:41)
--- NOTE | 2019-06-14 16:01 | NUR ---
Patient discharged with nephew at bedside. Discharge instructions reviewed with patient uncle and he verbalized understanding because patient speaks malay. No skin issues noted, No Resp distress. No pain noted at time of discharge.
== END 2019-06-14 16:01 | disposition home or self-care (01) | DRG 433 ==
LOC: ED 17:23 → ED-I 21:48 → ED 22:13 → ED-I 22:14 → MS2 06-11 01:00
PROVIDERS: Surgery; ADMIT Internal Medicine; ATTEND Internal Medicine
PROC: 30233K1 Transfusion of Nonautologous Frozen Plasma into Peripheral Vein, Percutaneous Approach (ICD-10-PCS; principal; 2019-06-11)
PROC: 30233K1 Transfusion of Nonautologous Frozen Plasma into Peripheral Vein, Percutaneous Approach (ICD-10-PCS; 2019-06-11)
PROC: 0W9G3ZZ Drainage of Peritoneal Cavity, Percutaneous Approach (ICD-10-PCS; 2019-06-12)
DX: K70.31 Alcoholic cirrhosis of liver with ascites (principal); I87.312 Chronic venous hypertension (idiopathic) with ulcer of left lower extremity; L97.929 Non-pressure chronic ulcer of unspecified part of left lower leg with unspecified severity; K76.6 Portal hypertension; D68.4 Acquired coagulation factor deficiency; F10.10 Alcohol abuse, uncomplicated; Z87.891 Personal history of nicotine dependence
CPT/HCPCS: Q9967

== ENCOUNTER 2019-07-27 14:40 | Observation (INO) | payer SELFPAY ==
[~2019-07-27] VITALS: Ht 167.6 cm; Wt 86.0 kg
[~2019-07-27 14:40] MED LIST changes: +ALDACTONE50 MG PO
--- NOTE | 2019-07-27 14:53 | NUR ---
PT TO ROOM VIA WHEELCHAIR, FOR BEDSIDE TRIAGE
--- NOTE | 2019-07-27 15:15 | NUR ---
IV INITIATED AND LABS COLLECTED. PT LEFT LEG DRESSING CLEAN AND INTACT. PER VISITOR IT WAS PLACED TODAY. SKIN TO LEFT LEG WARM, EDEMATOUS AND RED IN COLOR.
[2019-07-27 15:54] LABS: HEMATOCRIT 27.2 % (39.0-50.0); HEMOGLOBIN 9.5 g/dl (14.0-18.0); IMMATURE GRANULOCYTES 0.7 % (0.0-5.0); MEAN CORPUSCULAR HGB 33.7 pG CALC (26.0-32.0); MEAN CORPUSCULAR HGB CONC 34.9 g/dL CAL (32.0-36.0); NEUT# 4.54 thou/uL (1.82-7.42); RED BLOOD COUNT 2.82 mill/uL (4.70-6.10); RED CELL DISTRI WIDTH 14.6 % (11.5-15.5)
--- NOTE | 2019-07-27 16:05 | NUR ---
PT RESTING IN STRETCHER IV ABX INFUSING WITH NO DIFFICULTY. PT DENIES ANY NEEDS. CALL GAY WITHIN REACH
[2019-07-27 16:10] LABS: MEAN CELL VOLUME 96.5 fL CALC (80.0-100.0)
[2019-07-27 16:40] LABS: ALKALINE PHOSPHATASE 143 u/l (38-126); BILIRUBIN, TOTAL 3.6 mg/dL (0.0-1.4); BUN 12 mg/dL (9-20); BUN/CREATININE RATIO 15 (12-20 (CALC)); CHLORIDE 101 mmol/l (95-108); CREATININE 0.8 mg/dL (0.7-1.3); GFR > 60 ML/MIN (>=60 (CALC)); GFR FOR AFR.AMER. > 60 ML/MIN (>=60 (CALC)); SGOT/AST 38 u/l (17-59); SODIUM 131 mmol/l (137-146); TOTAL PROTEIN 7.8 g/dL (6.3-8.2)
[2019-07-27 16:44] LABS: ALBUMIN 2.9 g/dL (3.2-5.0); ANION GAP 14 (6-22 (CALC)); CARBON DIOXIDE 21 mmol/l (22-30); POTASSIUM 4.6 mmol/l (3.5-5.1)
--- NOTE | 2019-07-27 17:05 | NUR ---
IV VANCO INFUSING WITH NO DIFFICUTLY. PT DENIES ANY PAIN OR NEEDS AT THIS TIME. CALL GAY WITHIN REACH.
--- NOTE | 2019-07-27 18:10 | NUR ---
CALL PLACED TO MS, NURSE WILL CALL BACK.
--- NOTE | 2019-07-27 18:20 | NUR ---
DR DEAN NOTIFIED OF ELEVATED LACTIC ACID. DUE TO HIS HISTORY HE WOULD LIKE TO HOLD OFF ON IV FLUIDS.
--- NOTE | 2019-07-27 18:20 | NUR ---
REPORT CALLED TO BENJA OLIVERA.
--- NOTE | 2019-07-27 18:35 | NUR ---
Admission Note Report Given to: BENJA OLIVERA Transported by: X Wheelchair Stretcher Transported with: X Nurse Transporter X Patent IV O2 International Representative Location: ICU X MS2 PT TO ROOM 272 IN STABLE CONDITION.
[2019-07-27 18:40] VITALS: BP 117/68
--- NOTE | 2019-07-27 20:00 | NUR ---
PT RESTING IN BED NO SIGNS OF DISTRESS NOTED, RESP EVEN AND UNLABORED. PT ALERT AND ORIENTED X3, ANGOLAN SPEAKING ONLY, TELEPHONE MESSENGER SPEAKS ANGOLAN. ORIENTED PT TO ROOM AND CALL LIGHT, DISCUSSED POC, PT VOICES NO NEEDS OR COMPLAINTS AT THIS TIME. DRESSING TO LLE CDI, NOTED DRY/SCALING +2 PITTING EDEMA. WEAK PEDAL PULSES BILAT, LLE WARM TO TOUCH. ASSESSMENT COMPLETED, CALL LIGHT IN REACH,CONTINUE TO MONITOR.
--- NOTE | 2019-07-27 22:55 | NUR ---
PT RESTING IN BED, NO SIGNS OF DISTRESS NOTED, RESP EVEN AND UNLABORED. PT VOICES NO NEEDS OR COMPLAINTS AT THIS TIME, CONTINUE TO MONITOR.
--- NOTE | 2019-07-28 | NUR ---
PT RESTING IN BED, DISCUSSED IV ANTIBIOTIC INFUSION, PT AGREES, VOICES NO NEEDS OR COMPLAINTS AT THIS TIME, CALL LIGHT IN REACH,CONTINUE TO MONITOR.
[2019-07-28 03:56] VITALS: BP 105/55
--- NOTE | 2019-07-28 05:30 | NUR ---
IV ANTIBIOTIC INFUSION INITIATED, PT VOICES NO NEEDS OR COMPLAINTS AT THIS TIME, CALL LIGHT IN REACH,CONTINUE TO MONITOR.
--- NOTE | 2019-07-28 07:05 | NUR ---
REPORT RECEIVED FROM BENJA LAZO. PT RESTING IN BED SEMI FOWLERS; ALERT AND ORIENTED; DIVEHI SPEAKING ONLY. DENIES PAIN. RESPIRATIONS EVEN AND UNLABORED ON ROOM AIR. LUNGS CLEAR. ABDOMEN DISTENDED AND SOFT. DRESSING TO LEFT CALF AND LEFT FOOT; BOTH CDI. 4+ PITTING PEDAL EDEMA. TRACE RIGHT PEDAL EDEMA. PLAN OF CARE REVIEWED. PT ENCOURAGED TO VERBALIZE CONCERNS. STATES UNDERSTANDING. SAFETY MEASURES IN PLACE. CALL LIGHT WITHIN REACH.
[2019-07-28 07:29] VITALS: BP 101/54
--- NOTE | 2019-07-28 11:28 | NUR ---
Pt is a 59 M who presents with Cellulitis. PT also on Zosyn 3.375gm iv Q6H All medications in the patient's chart were reviewed. Temp: 98.8 F BW: 82.8 kg, Scr: 0.8 mg/dl, CrCl: 119.3 ml/min Blood/wound cultures are pending. Vancomycin ordered for pharmacy to dose. Start Vancomycin 1,000mg Q8H at 1000. Vancomycin trough is drawn before the 4th dose on 07/29/19 at 0930. Vancomycin goal trough is between 10-15 mcg/ml. Pharmacy will follow and or advise on antibiotics use as needed.
[2019-07-28 15:27] VITALS: BP 109/66
--- NOTE | 2019-07-28 15:52 | NUR ---
DR. VALENTINE AT BEDSIDE FOR WOUND CARE CONSULT. DRESSING TO LLE CHANGED. WOUND CLEANSED WITH NORMAL SALINE; SILVER ALGINATE APPLIED TO GRANULATION TISSUE; WRAPPED WITH KERLEX AND GARRETT WRAP. ELEVATED ON PILLOW. PT TOLERATED WELL. MILD PAIN WITH DRESSING CHANGE; OTHERWISE DENIES PAIN TO LEG.
[2019-07-28 18:35] VITALS: BP 117/64
--- NOTE | 2019-07-28 18:38 | NUR ---
PT AMBULATED TO BATHROOM WITH CANE. REPORTS MODERATE PAIN TO LLE; TYLENOL GIVEN AT THIS TIME. ZOSYN INFUSING. NO OTHER REQUESTS AT THIS TIME. DRESSING CDI.
--- NOTE | 2019-07-28 19:47 | NUR ---
ASSESSMENT COMPLETED. NO DISTRESS NOTED. REPORTS SLIGHT PAIN TO LLE; PT. RECEIVED PRN TYLENOL LITTLE BIT AGO AND REPORTS HE WILL WAIT AND SEE IF THAT HELPS DRESSING IN PLACE TO LLE; CDI. PULSES PRESENT TO ALL EXTREMETIES. SNACK PROVIDED. SCHED MEDS GIVEN. ENCOURAGED TO CALL FOR ANY NEEDS. CALL LIGHT IS IN REACH.
--- NOTE | 2019-07-28 23:32 | NUR ---
PT. SITTING UP IN BED WATCHING TV, NO DISTRESS NOTED; DENIES NEEDS/PAIN. THI BARTHOLOMEW. WILL CONTINUE TO MONITOR.
[2019-07-29 04:00] VITALS: BP 107/63
--- NOTE | 2019-07-29 04:29 | NUR ---
PT. C/O LLE PAIN AND MEDICATED WITH ORDERED PRN TYLENOL, WILL REASSESS.
[2019-07-29 08:05] VITALS: BP 112/65
--- NOTE | 2019-07-29 08:05 | NUR ---
PT SITTING IN BED. A&O X3. NO PAIN OR NEEDS AT THIS TIME. DRESSING TO LT LEG CDI WITH NO SHADOWING PRESENT. ASSESSMENT COMPLETED. DISCUSSED POC. CALL LIGHT IN REACH. CONTINUE TO MONITOR.
--- NOTE | 2019-07-29 09:10 | NUR ---
POLICY OFFICER AT BEDSIDE COMPLETING VENIPUNCTURE FOR VANCO TROUGH.
--- NOTE | 2019-07-29 09:52 | NUR ---
VANCOTROUGH 17, VANCOMYCIN INITIATED
--- NOTE | 2019-07-29 13:17 | NUR ---
S: FIORDALIZA DARDEN is a 59 M who presents with SSTI. He has a history of ENTEROCOCCUS . All medications in patient's chart were reviewed. Patient is on <ABX>. Vancomycin TROUGH IS 17 GOAL IS 10-20 CONTINUE Vancomycin 1 GRAM IV Q8H. Vancomycin trough is drawn before the dose ON 07/31/19 @0930. Vancomycin goal trough is between <10-20 mcg/ml>. Pharmacy will follow and or advise on antibiotics use as needed. MITCHELL SAMPSOND
--- NOTE | 2019-07-29 15:20 | NUR ---
DRESSING CHANGE COMPLETED TO LLE. PT TOLERATED WELL.
[2019-07-29 15:31] VITALS: BP 106/69
[2019-07-29 19:07] VITALS: BP 107/63
--- NOTE | 2019-07-29 21:31 | NUR ---
PT RETURNING TO BED FROM THE BATHROOM, GATE STEADY, ALERT. RESPIRATIONS EVEN AND UNLABORED ON RA, LUNGS SOUND CLEAR. PEDAL PULSES WEAK. PT REPORTS HAVING MILD PAIN IN LOWER EXTREMITIES, PT REPOSITIONED. SAFETY PRECAUTIONS IN PLACE. WILL CONTINUE TO MONITOR.
--- NOTE | 2019-07-29 23:41 | NUR ---
PT RESTING IN BED NO S/S OF DISTRESS AT THIS TIME. SAFETY PRECAUTIONS IN PLACE. WILL CONTINUE TO MONITOR.
[2019-07-30 04:29] VITALS: BP 106/58
--- NOTE | 2019-07-30 04:44 | NUR ---
PT RESTING IN BED. FREE OF DISTRESS AT THIS TIME. SAFETY PRECAUTIONS IN PLACE. WILL CONTINUE TO MONITOR.
[2019-07-30 05:22] LABS: HEMATOCRIT 28.1 % (39.0-50.0); HEMOGLOBIN 9.8 g/dl (14.0-18.0); MEAN CELL VOLUME 96.6 fL CALC (80.0-100.0); MEAN CORPUSCULAR HGB 33.7 pG CALC (26.0-32.0); MEAN CORPUSCULAR HGB CONC 34.9 g/dL CAL (32.0-36.0); NEUT# 2.65 thou/uL (1.82-7.42); RED BLOOD COUNT 2.91 mill/uL (4.70-6.10); RED CELL DISTRI WIDTH 15.3 % (11.5-15.5)
[2019-07-30 05:42] LABS: ANION GAP 8 (6-22 (CALC)); BUN 11 mg/dL (9-20); BUN/CREATININE RATIO 15 (12-20 (CALC)); CARBON DIOXIDE 22 mmol/l (22-30); CHLORIDE 108 mmol/l (95-108); CREATININE 0.8 mg/dL (0.7-1.3); GFR > 60 ML/MIN (>=60 (CALC)); GFR FOR AFR.AMER. > 60 ML/MIN (>=60 (CALC)); POTASSIUM 4.1 mmol/l (3.5-5.1); SODIUM 134 mmol/l (137-146)
[2019-07-30 07:15] VITALS: BP 101/58
--- NOTE | 2019-07-30 07:15 | NUR ---
PT SLEEPING IN BED, AWAKENED TO COMPLETE ASSESSMENT. A&O X3. NO DISTRESS OR PAIN NOTED. DRESSING TO LLE CDI WITH NO SHADOWING PRESENT. ASSESSMENT COMPLETED. DISCUSSED POC. CALL LIGHT IN REACH. CONTINUE TO MONITOR.
[2019-07-30 15:30] VITALS: BP 112/69
--- NOTE | 2019-07-30 16:36 | NUR ---
DRESSING COMPLETE TO LLE. PT TOLERATED WELL.
--- NOTE | 2019-07-30 17:35 | NUR ---
PT SITTING IN BED EATING SUPPER. NO NEEDS OR DISTRESS AT THIS TIME. CALL LIGHT IN REACH. CONTINUE TO MONITOR.
[2019-07-30 19:30] VITALS: BP 108/70
--- NOTE | 2019-07-30 19:55 | NUR ---
ASSESSMENT COMPLETED; DENIES NEEDS/PAIN. DRESSING CDI TO LLE AND ELEVATED ONTO PILLOW; PULSES PRESENT TO ALL EXTREMETIES. UPDATED ON POC. CALL LIGHT IS IN REACH.
--- NOTE | 2019-07-31 | NUR ---
IV SITE LEAKING TO RAC AND REMOVED; CATHETER TIP INTACT. NEW IV STARTED TO RFA X1 ATTEMPT. TOLERATED WELL. DENIES NEEDS/PAIN. CALL LIGHT IS IN REACH. WILL CONTINUE TO MONITOR.
--- NOTE | 2019-07-31 02:20 | NUR ---
PT. RESTING IN BED WITH NO DISTRESS NOTED; DENIES NEEDS. CALL LIGHT IS IN REACH. VANCOMYCIN HUNG PER ORDER.
[2019-07-31 04:05] VITALS: BP 101/63
[2019-07-31 05:14] LABS: HEMATOCRIT 27.6 % (39.0-50.0); HEMOGLOBIN 9.5 g/dl (14.0-18.0); MEAN CORPUSCULAR HGB 34.4 pG CALC (26.0-32.0); MEAN CORPUSCULAR HGB CONC 34.4 g/dL CAL (32.0-36.0); RED BLOOD COUNT 2.76 mill/uL (4.70-6.10); RED CELL DISTRI WIDTH 14.9 % (11.5-15.5)
--- NOTE | 2019-07-31 05:15 | NUR ---
PT. RESTING IN BED WITH NO DISTRESS NOTED; DENIES NEEDS/PAIN. CALL LIGHT IS IN REACH.
[2019-07-31 05:42] LABS: ALKALINE PHOSPHATASE 120 u/l (38-126); ANION GAP 7 (6-22 (CALC)); BUN 12 mg/dL (9-20); BUN/CREATININE RATIO 17 (12-20 (CALC)); CARBON DIOXIDE 21 mmol/l (22-30); CHLORIDE 110 mmol/l (95-108); CREATININE 0.7 mg/dL (0.7-1.3); GFR > 60 ML/MIN (>=60 (CALC)); GFR FOR AFR.AMER. > 60 ML/MIN (>=60 (CALC)); POTASSIUM 4.2 mmol/l (3.5-5.1); SGOT/AST 42 u/l (17-59); SODIUM 133 mmol/l (137-146)
[2019-07-31 05:53] LABS: ALBUMIN 1.9 g/dL (3.2-5.0); BILIRUBIN, TOTAL 1.4 mg/dL (0.0-1.4); TOTAL PROTEIN 5.8 g/dL (6.3-8.2)
--- NOTE | 2019-07-31 07:30 | NUR ---
RECIEVED REPORT FROM FLEX REESE. PT SLEEPING IN LOW SEMI FOWLERS POSITION. BREATHING IS EVEN AND LABORED ON ROOM AIR. NO SIGNS OF ANY PAIN OR DISCOMFORT AT THIS TIME.ALL SAFTEY PERCAUTIONS IN PLACE WITH CALL LIGHT IN REACH. WILL CONTINUE TO MONIOR.
[2019-07-31 08:00] VITALS: BP 98/62
--- NOTE | 2019-07-31 08:00 | NUR ---
ASSESMENT COMPLETE AND VITALS OBTAINED, BP 98/62, HR 71, TEMP 97.7 AND O2 98% ON ROOM AIR. HEART RHYTHM NORMAL, BREATH SOUNDS CLEAR, AND BOWEL SOUNDS ACTIVE IN ALL QUADRANTS. RADIAL AND PEDAL PULSES STRONG. 1+ EDEMA IN LOWER LEFT EXTERMITY, ELEVATED WITH PILLOW. DRESSING CLEAN AND INTACT. IV FLUSHED, SITE APPEARS HEALTHY AND PATENT. PT DENIES ANY PAIN OR DISCOMFORTS AT THIS TIME. ALL SAFTEY PERCAUTIONS IN PLACE WITH CALL LIGHT IN PLACE. WILL CONTINUE TO MONIOTR.
--- NOTE | 2019-07-31 10:19 | NUR ---
PT IS BEING TREATED FOR LLE CELLULITIS. VANCOMYCIN ORDERED FOR PHARMACY TO DOSE. PT WAS RECEIVING 1G IV Q8H. FIRST TROUGH ON 07/28 WAS 17. TROUGH TODAY WAS 20. GOAL TROUGH 10-15 MCG/ML. CHANGE VANCOMYCIN DOSE TO 1250MG IV Q12H. DRAW TROUGH 30 MIN PRIOR TO 4TH DOSE ON 08/01 @ 0000. PHARMACY WILL CONTINUE TO MONITOR AND ADVISE NEEDED.
--- NOTE | 2019-07-31 11:21 | NUR ---
AT BEDSIDE DISCUSSING POC WITH TRANSLATION BY [employer] +.
--- NOTE | 2019-07-31 12:00 | NUR ---
PT RESTING IN SEMI FOWLERS POSTION WATHCING TV. BREATHING IS EVEN AND UNLABORED. PT DENIES ANY PAIN OR DISCOMFORTS AT THIS TIME. ALL SAFTEY PRECAUTIONS IN PLACE WITH CALL LIGHT IN REACH. WILL CONTINUE TO MONIOTR.
[2019-07-31] MEDS ORDERED: DOXYCYCL HYC100 MG PO (14:24)
[2019-07-31 15:28] VITALS: BP 112/65
--- NOTE | 2019-07-31 16:16 | NUR ---
PT RESTING IN SEMI FOWLERS POSTION WATCHING TV. BREATHING IS EVEN AND UNLABORED ON ROOM AIR. PT DENIES ANY PAIN OR DISCOMFORTS AT THIS TIME. ALL SAFTEY PRECAUTIONS IN PLACE WITH CALL LIGHT IN REACH, ENCOURAGED PT TO CALL. WILL CONTINUE TO MONITOR.
--- NOTE | 2019-07-31 17:20 | NUR ---
FRANCESCA EDUCATED PT ON DISCHARGE INTRUCTIONS AND EDUCATION. HOME ABX PROVIDED BY FRANCESCA GREER EDUCATED ON USE.PT DENIES ANY QUESTIONS OR NEEDS. PT HOME MEDS PROVIDED BY PHARMACY. PT VERBALIZED UNDERSTANDING ALL EDUCATION AND DISCHARGE INSTRUCTIONS. IV REMOVED, CATHATER STILL INTACT. PT TOLERATED WELL.WHEELCHAIR PROVIED FOR TRANSPORTED. [facility] CALLED FOR TRANSPORTATION HOME.
--- NOTE | 2019-07-31 17:34 | NUR ---
Discharge instructions given. Patient verbalizes understanding of same. Discharged in stable condition via Wheelchair to Home with *Other. All belongings sent with pt. PT TRANSPORTED TO [facility] IN STABLE CONDITION VIA WHEELCHAIR ACCOMPANIED BY STEVE BAEZ[employer] SERVICE TO TRANSPORT PT HOME.
--- NOTE | 2019-07-31 17:39 | NUR ---
Discharge instructions given. Patient verbalizes understanding of same. Discharged in stable condition via Wheelchair to Home with *Other. All belongings sent with pt. PT LEFT IN STABLE CONDITION VIA WHEELCHAIR, ACCOMPAINED BY STEVE BAEZ. PT LEFT WITH DISCHARGE INTRUCTIONS/EDUCATION AND ALL BELONGINGS. ALL HOME MEDS GIVEN TO PT, INCLUDING MEDS GIVEN PHARMACY.
== END 2019-07-31 17:34 | disposition home or self-care (01) | DRG 603 ==
LOC: ED 14:40 → ED-I 16:56 → ED 17:06 → ED-I 17:07 → MS2 17:58
PROVIDERS: Internal Medicine; Nurse Practitioner Family; ADMIT Internal Medicine; ATTEND Internal Medicine
DX: L03.116 Cellulitis of left lower limb (principal); I87.312 Chronic venous hypertension (idiopathic) with ulcer of left lower extremity; L97.929 Non-pressure chronic ulcer of unspecified part of left lower leg with unspecified severity; K72.90 Hepatic failure, unspecified without coma; I11.0 Hypertensive heart disease with heart failure; I50.9 Heart failure, unspecified; J44.9 Chronic obstructive pulmonary disease, unspecified; K74.60 Unspecified cirrhosis of liver; K30 Functional dyspepsia; T36.8X6A Underdosing of other systemic antibiotics, initial encounter; Z91.138 Patient's unintentional underdosing of medication regimen for other reason; Z87.891 Personal history of nicotine dependence
CPT/HCPCS: G0378; J3370

== ENCOUNTER 2019-11-30 11:21 | Observation (INO) | payer SELFPAY ==
[~2019-11-30] VITALS: Ht 167.6 cm; Wt 83.4 kg
[~2019-11-30 11:21] MED LIST changes: +DOXYCYCL HYC100 MG PO
--- NOTE | 2019-11-30 11:35 | NUR ---
PT TO ROOM VIA WC IN NO ACUTE DISTRESS.
--- NOTE | 2019-11-30 12:15 | NUR ---
PT RESTING IN BED, ALERT, 100% ON ROOM AIR. NO SIGNS OF DISTRESS. VITALS WNL.
[2019-11-30 12:19] LABS: HEMATOCRIT 30.6 % (39.0-50.0); HEMOGLOBIN 10.2 g/dl (14.0-18.0); MEAN CORPUSCULAR HGB 33.3 pG CALC (26.0-32.0); MEAN CORPUSCULAR HGB CONC 33.3 g/dL CAL (32.0-36.0); NEUT# 1.59 thou/uL (1.82-7.42); RED BLOOD COUNT 3.06 mill/uL (4.70-6.10); RED CELL DISTRI WIDTH 15.6 % (11.5-15.5)
[2019-11-30 12:31] LABS: ANION GAP 9 (6-22 (CALC)); BUN 8 mg/dL (9-20); BUN/CREATININE RATIO 8 (12-20 (CALC)); CARBON DIOXIDE 25 mmol/l (22-30); CHLORIDE 104 mmol/l (95-108); CREATININE 0.9 mg/dL (0.7-1.3); GFR > 60 ML/MIN (>=60 (CALC)); GFR FOR AFR.AMER. > 60 ML/MIN (>=60 (CALC)); LIPASE 100 u/l (23-300); POTASSIUM 3.9 mmol/l (3.5-5.1); SGOT/AST 42 u/l (17-59); SODIUM 134 mmol/l (137-146); TOTAL PROTEIN 6.4 g/dL (6.3-8.2)
[2019-11-30 12:34] LABS: ALBUMIN 2.4 g/dL (3.2-5.0); ALKALINE PHOSPHATASE 188 u/l (38-126); BILIRUBIN, TOTAL 2.5 mg/dL (0.0-1.4)
--- NOTE | 2019-11-30 13:15 | NUR ---
PT TRANSPORTED TO ULTRASOUND
--- NOTE | 2019-11-30 13:55 | NUR ---
PT RETURNED FROM PARACENTESIS. 9 LITERS REMOVED. ATTACHED TO MONITOR, BED IN LOW POSITION. VITALS STABLE
[2019-11-30 15:08] LABS: INTERNATIONAL NORMALIZED RATIO 1.9 RATIO (0.7-1.3); PROTHROMBIN TIME 18.5 SECONDS (9.0-12.5)
--- NOTE | 2019-11-30 15:20 | NUR ---
REPORT GIVEN TO MONA. PT ADMITTED TO ROOM 279.
--- NOTE | 2019-11-30 15:31 | NUR ---
PT ARRIVED TO ND VIA ACCOMPANIED BY SONDRA MCCORD. PT A&O X3. NO DISTRESS NOTED. PT REPORTS RELIEF AFTER PARACENTESIS. DRESSING TO LT SIDE OF ABD CDI. CHRONIC LEG WOUND TO LLE, PER PT HE HAS BEEN FOLLOWING UP WITH DR VALENTINE AT [facility] Q7 DAYS, DRESSING CHANGE DONE TODAY PRIOR TO ARRIVING TO THE ED. +2 PTTING EDEMA NOTED TO BLE, TRACE EDEMA THROUGHOUT THE REST OF THE BODY. ABD SLIGHTLY DISTENDED BUT NOT FIRM. JAUNDICE NOTED TO BILATERAL SCLERAS. UNSTEADY GAIT NOTED. SLIGHT TREMORS NOTED. ORIENTED PT TO ROOM. ASSESSMENT COMPLETED. DISCUSSED POC. CALL LIGHT IN REACH. CONTINUE TO MONITOR.
[2019-11-30 15:35] VITALS: BP 108/67
[2019-11-30 19:18] VITALS: BP 103/66
--- NOTE | 2019-11-30 20:20 | NUR ---
PT RESTING IN BED. DENIES PAIN OR DISCOMFORT. PHYSICAL ASSESMENT COMPLETE. SCHEDULED MEDICATIONS ADMINISTERED. SEE E-MAR. PLAN OF CARE REVIEWED. PT VERBALIZES UNDERSTANDING AND DENIES QUESTIONS. PT DENIES FURTHER NEEDS AT THIS TIME. CALL GAY WITHIN REACH, AGREES TO CALL PRN.
[2019-12-01 00:07] VITALS: BP 98/55
--- NOTE | 2019-12-01 00:37 | NUR ---
PT LAYING IN BED, APPAERS TO BE SLEEPING COMFORTABLY, NO APPARENT DISTRESS. RESPIRATIONS REGULAR AND UNLABORED. CALL GAY REMAINS WITHIN REACH.
[2019-12-01 04:25] VITALS: BP 96/52
[2019-12-01 05:10] LABS: HEMATOCRIT 29.9 % (39.0-50.0); HEMOGLOBIN 9.9 g/dl (14.0-18.0); IMMATURE GRANULOCYTES 0.2 % (0.0-5.0); MEAN CELL VOLUME 100.3 fL CALC (80.0-100.0); MEAN CORPUSCULAR HGB 33.2 pG CALC (26.0-32.0); MEAN CORPUSCULAR HGB CONC 33.1 g/dL CAL (32.0-36.0); NEUT# 1.72 thou/uL (1.82-7.42); RED BLOOD COUNT 2.98 mill/uL (4.70-6.10); RED CELL DISTRI WIDTH 15.8 % (11.5-15.5)
[2019-12-01 05:34] LABS: ALBUMIN 2.6 g/dL (3.2-5.0); ALKALINE PHOSPHATASE 137 u/l (38-126); ANION GAP 9 (6-22 (CALC)); BILIRUBIN, TOTAL 2.6 mg/dL (0.0-1.4); BUN 8 mg/dL (9-20); BUN/CREATININE RATIO 12 (12-20 (CALC)); CARBON DIOXIDE 21 mmol/l (22-30); CHLORIDE 107 mmol/l (95-108); CREATININE 0.6 mg/dL (0.7-1.3); GFR > 60 ML/MIN (>=60 (CALC)); GFR FOR AFR.AMER. > 60 ML/MIN (>=60 (CALC)); MAGNESIUM 1.9 mg/dL (1.6-2.3); POTASSIUM 4.1 mmol/l (3.5-5.1); SGOT/AST 37 u/l (17-59); SODIUM 134 mmol/l (137-146); TOTAL PROTEIN 6.1 g/dL (6.3-8.2)
[2019-12-01 07:15] VITALS: BP 87/50
--- NOTE | 2019-12-01 07:15 | NUR ---
PT SITTING IN BED. A&O X3. NO DISTRESS NOTED. LLE WOUND DRESSING STILL IN PLACE, CDI. ABD SLIGHLTY DISTENDED, PT REPORTS TO BE FEELING BETTER TODAY. EDEMA STILL NOTED TO BLE. NO NEEDS AT THIS TIME. ASSESSMENT COMPLETED. DISCUSSED POC. CALL LIGHT IN REACH. CONTINUE TO MONITOR.
[2019-12-01] MEDS ORDERED: ALDACTONE50 MG PO (10:12)
[2019-12-01] MEDS ORDERED: LASIX 20 MG TAB20 MG PO (10:12)
[2019-12-01] MEDS ORDERED: LACTULOSE10 GM/15 M PO (10:12)
--- NOTE | 2019-12-01 12:40 | NUR ---
D/C INSTRUCTIONS GIVEN TO PT, PT VERBALIZED UNDERSTANDING.
--- NOTE | 2019-12-01 13:35 | NUR ---
Discharge instructions given. Patient verbalizes understanding of same. Discharged in stable condition via wheelchair to home accompanied by staff. All belongings sent with pt.
== END 2019-12-01 13:25 | disposition home or self-care (01) | DRG 433 ==
LOC: ED 11:21 → ED-I 13:50 → ED 14:02 → MS2 14:03
PROVIDERS: Nurse Practitioner; Student in an Organized Health Care Education/Training Program; ADMIT Internal Medicine; ATTEND Internal Medicine
PROC: 0W9G3ZZ Drainage of Peritoneal Cavity, Percutaneous Approach (ICD-10-PCS; principal; 2019-11-30)
DX: K70.40 Alcoholic hepatic failure without coma (principal); L97.929 Non-pressure chronic ulcer of unspecified part of left lower leg with unspecified severity; I87.312 Chronic venous hypertension (idiopathic) with ulcer of left lower extremity; K70.31 Alcoholic cirrhosis of liver with ascites; Z20.828 Contact with and (suspected) exposure to other viral communicable diseases
CPT/HCPCS: G0378; P9047; Q9967

== ENCOUNTER 2020-01-16 11:31 | Emergency (ER) | payer SELFPAY ==
[~2020-01-16] VITALS: Ht 167.6 cm; Wt 74.0 kg
[2020-01-16 12:00] LABS: HEMATOCRIT 33.6 % (39.0-50.0); HEMOGLOBIN 11.4 g/dl (14.0-18.0); IMMATURE GRANULOCYTES 0.2 % (0.0-5.0); MEAN CELL VOLUME 101.5 fL CALC (80.0-100.0); MEAN CORPUSCULAR HGB 34.4 pG CALC (26.0-32.0); MEAN CORPUSCULAR HGB CONC 33.9 g/dL CAL (32.0-36.0); NEUT# 1.86 thou/uL (1.82-7.42); RED BLOOD COUNT 3.31 mill/uL (4.70-6.10); RED CELL DISTRI WIDTH 15.5 % (11.5-15.5)
[2020-01-16 12:18] LABS: INTERNATIONAL NORMALIZED RATIO 1.6 RATIO (0.7-1.3); PROTHROMBIN TIME 15.5 SECONDS (9.0-12.5)
[2020-01-16 12:24] LABS: ALBUMIN 2.6 g/dL (3.2-5.0); AMYLASE 100 u/l (30-110); ANION GAP 7 (6-22 (CALC)); BILIRUBIN, TOTAL 2.4 mg/dL (0.0-1.4); BUN 9 mg/dL (9-20); BUN/CREATININE RATIO 13 (12-20 (CALC)); CARBON DIOXIDE 24 mmol/l (22-30); CHLORIDE 109 mmol/l (95-108); CREATININE 0.7 mg/dL (0.7-1.3); GFR > 60 ML/MIN (>=60 (CALC)); GFR FOR AFR.AMER. > 60 ML/MIN (>=60 (CALC)); LIPASE 132 u/l (23-300); POTASSIUM 4.4 mmol/l (3.5-5.1); SGOT/AST 42 u/l (17-59); SODIUM 136 mmol/l (137-146); TOTAL PROTEIN 6.8 g/dL (6.3-8.2)
[2020-01-16 12:31] LABS: ALKALINE PHOSPHATASE 233 u/l (38-126)
[2020-01-16 12:35] LABS: MYOGLOBIN 33 ng/mL (0 - 121)
[2020-01-16] MEDS ORDERED: CARAFATE1 GM PO (13:18)
[2020-01-16 14:25] LABS: URINE BLOOD DIPSTICK NEGATIVE (NEGATIVE); URINE GLUCOSE - DIPSTICK NEGATIVE (NEGATIVE); URINE KETONE NEGATIVE (NEGATIVE); URINE LEUK ESTERASE NEGATIVE (NEGATIVE); URINE NITRITE - DIPSTICK NEGATIVE (Negative); URINE PROTEIN - DIPSTICK NEGATIVE (NEG-TRACE); URINE SPECIFIC GRAVITY 1.015; URINE UROBILINOGEN - DIPSTICK 0.2 E.U./dL (0.2)
[2020-01-16 14:26] LABS: URINE BILIRUBIN - DIPSTICK SMALL (NEGATIVE); URINE COLOR DK. YELLOW
[2020-01-16 15:24] VITALS: BP 146/75
== END 2020-01-16 15:30 | disposition home or self-care (01) | DRG 434 ==
LOC: ED 11:31
PROVIDERS: Emergency Medicine
DX: K70.31 Alcoholic cirrhosis of liver with ascites (principal); I11.0 Hypertensive heart disease with heart failure; I50.9 Heart failure, unspecified; J44.9 Chronic obstructive pulmonary disease, unspecified; T47.3X6A Underdosing of saline and osmotic laxatives, initial encounter; Z91.128 Patient's intentional underdosing of medication regimen for other reason; Z20.828 Contact with and (suspected) exposure to other viral communicable diseases
CPT/HCPCS: Q9967

== ENCOUNTER 2020-08-13 10:27 | Inpatient (IN) | payer SELFPAY ==
[~2020-08-13] VITALS: Ht 167.6 cm; Wt 92.0 kg
[~2020-08-13 10:27] MED LIST changes: +CARAFATE1 GM PO
--- NOTE | 2020-08-13 10:35 | NUR ---
PT TO ROOM WITH STEADY GAIT
[2020-08-13 11:27] LABS: HEMATOCRIT 32.3 % (39.0-50.0); HEMOGLOBIN 10.8 g/dl (14.0-18.0); IMMATURE GRANULOCYTES 0.4 % (0.0-5.0); MEAN CELL VOLUME 102.5 fL CALC (80.0-100.0); MEAN CORPUSCULAR HGB 34.3 pG CALC (26.0-32.0); MEAN CORPUSCULAR HGB CONC 33.4 g/dL CAL (32.0-36.0); NEUT# 5.41 thou/uL (1.82-7.42); RED BLOOD COUNT 3.15 mill/uL (4.70-6.10); RED CELL DISTRI WIDTH 15.4 % (11.5-15.5)
--- NOTE | 2020-08-13 11:30 | NUR ---
PT RESTING ON STRETCHER WITH EYES CLOSED AWAITING RESULTS
[2020-08-13 11:44] LABS: ACT PARTIAL THROMBO TIME 32.5 SECONDS (20.0-32.5); ALBUMIN 2.7 g/dL (3.2-5.0); ALKALINE PHOSPHATASE 169 u/l (38-126); AMYLASE 119 u/l (30-110); ANION GAP 9 (6-22 (CALC)); BILIRUBIN, TOTAL 1.9 mg/dL (0.0-1.4); BUN 17 mg/dL (9-20); BUN/CREATININE RATIO 23 (12-20 (CALC)); CARBON DIOXIDE 23 mmol/l (22-30); CHLORIDE 105 mmol/l (95-108); CREATININE 0.7 mg/dL (0.7-1.3); ETHYL ALCOHOL 0 mg/dl (0-30); GFR > 60 ML/MIN (>=60 (CALC)); GFR FOR AFR.AMER. > 60 ML/MIN (>=60 (CALC)); INTERNATIONAL NORMALIZED RATIO 1.5 RATIO (0.7-1.3); LIPASE 282 u/l (23-300); POTASSIUM 3.8 mmol/l (3.5-5.1); PROTHROMBIN TIME 15.5 SECONDS (9.0-12.5); SGOT/AST 42 u/l (17-59); SODIUM 133 mmol/l (137-146); TOTAL PROTEIN 6.9 g/dL (6.3-8.2)
--- NOTE | 2020-08-13 12:40 | NUR ---
PT DISCONNECTED TO GO TO ULTRASOUND. PROCEDURES DISCUSSED WITH PT
--- NOTE | 2020-08-13 13:55 | NUR ---
PT RECONNECTED TO MONITORING EQUIPMENT
--- NOTE | 2020-08-13 14:30 | NUR ---
PT RESTING IN BED WITH ANTIBIOTICS FLOWING INTO PATENT IV. DENIES ANY NEEDS AT THIS TIME
--- NOTE | 2020-08-13 15:50 | NUR ---
PT IS RECIEVING ALBUMIN AND IS TOLERATING WELL. PENDING ADMISSION IS DISCUSSED WITH PT.
--- NOTE | 2020-08-13 16:38 | NUR ---
PT TRANSPORTED TO MED SURG STABLE AND IN NO DISTRESS TO MED SURG VIA W/C. CARE ASSUMED TO MAGNOLIA Admission Note Report Given to: MAGNOLIA Transported by: X Wheelchair Stretcher Transported with: X Nurse Transporter X Patent IV O2 X Watch Engineer Location: ICU X MS2
[2020-08-13 16:40] VITALS: BP 113/73
--- NOTE | 2020-08-13 17:15 | NUR ---
1631-PT ARRIVED TO UNIT VIA WHEELCHAIR WITH ER STAFF; ALERT AND ORIENTED X 3; NIGERIEN SPEAKING ONLY. AMBULATED TO BED WITH STEADY GAIT. PT DENIES PAIN; RESPIRATIONS EVEN AND UNLABORED ON ROOM AIR. VSS; AFEBRILE 97.1; NO SIGNS OF INFECTION; DENIES ABDOMINAL TENDERNESS, EVEN ON PALPATION. PLEASANT AND COOPERATIVE. SKIN AND SCLERA ARE JAUNDICE; CATARACTS NOTED. LUNGS ARE CLEAR, HR REGULAR, ABDOMEN DISTENDED AND SOFT; SEROSANGUINOUS DRAINGE WEEPING FROM PARACENTESIS PUNCTURE SITE TO RIGHT UPPER ABDOMEN; 2X2 GAUZE AND TEGADERM REPLACED. 3+ PITTING EDEMA TO BLE; ANTERIOR LLE HAS WOUND WITH STRONG FOUL ODOR;DRESSING WITH LARGE AMOUNT OF PURULENT DRAINAGE; DRESSING REMOVED AND REPLACED WITH ACUACEL FOAM SPONGE AND KERLEX AT 1658. ORIENTED TO ROOM AND CALL LIGHT SYSTEM. SAFETY MEASURES IN PLACE CALL LIGHT WITHIN REACH. 1715-IV FLUIDS INITIATED AT 50 ML/HR; ROCEPHIN INFUSING AT THIS TIME WITHOUT DIFFICULTY; #20G TO RAC APPEARS HEALTHY AND FLUSHES. LACTULOSE ALSO PROVIDED. ONLY REQUEST AT THIS TIME IS FOR MILK AND GRAHM CRACKERS.
[2020-08-13 19:00] VITALS: BP 122/75
--- NOTE | 2020-08-13 19:00 | NUR ---
REPORT RECEIVED FROM Manjinder MENDOZA RN, CARE OF PT ASSUMED AT THIS TIME.
--- NOTE | 2020-08-13 19:59 | NUR ---
PT SITTING UP IN BED WATCHING TV. PHYSICAL ASSESMENT COMPLETE. NO APPARENT DISTRESS. RESPIRATIONS REGULAR AND UNLABORED. LUNGS CLEAR AND DIMINISHED, ABD SOFT, DISTENDED, NON-TENDER. MILK AND CLAUDIA CRACKERS PROVIDED PER PT'S REQUEST. PT DENIES FURTHER NEEDS AT THIS TIME. PLAN OF CARE REVIEWED, PT VERBALIZES UNDERSTANDING. CALL DEIDRA WILKINSON, AGREES TO CALL PRN.
--- NOTE | 2020-08-13 20:53 | NUR ---
SCHEDULED MEDICATIONS ADMINISTERED, SEE E-MAR.
--- NOTE | 2020-08-14 00:30 | NUR ---
PT APPAERS TO BE SLEEPING COMFORTABLY, LAYING IN BED WITH EYES CLOSED, RESPIRATIONS REGUALR AND UNLABORED, NO APPARENT DISTRESS. CALL GAY REMAINS WITHIN REACH.
[2020-08-14 04:30] VITALS: BP 124/72
--- NOTE | 2020-08-14 04:34 | NUR ---
Eric JENKINS CORRECTIONAL CASEWORK SPECIALIST IN ROOM TO COLLECT AM LABS.
[2020-08-14 05:22] LABS: HEMATOCRIT 32.3 % (39.0-50.0); HEMOGLOBIN 10.7 g/dl (14.0-18.0); MEAN CELL VOLUME 104.2 fL CALC (80.0-100.0); MEAN CORPUSCULAR HGB 34.5 pG CALC (26.0-32.0); MEAN CORPUSCULAR HGB CONC 33.1 g/dL CAL (32.0-36.0); RED BLOOD COUNT 3.1 mill/uL (4.70-6.10); RED CELL DISTRI WIDTH 15.8 % (11.5-15.5)
--- NOTE | 2020-08-14 05:42 | NUR ---
R-SIDE ABD DRESSING FROM PARACENTESIS DRAIANGE SITE SATURATED WITH SEROUSANGUIONOUS DRAINAGE. DRESSING REMOVED. AREA CLEANED AND PATTED DRY. NEW DRESSING OF (2)2X2 AND TEGADERM NON-OCCLUSIVE DRESSING APPLIED.
[2020-08-14 05:45] LABS: ANION GAP 8 (6-22 (CALC)); BUN 17 mg/dL (9-20); BUN/CREATININE RATIO 23 (12-20 (CALC)); CARBON DIOXIDE 25 mmol/l (22-30); CHLORIDE 106 mmol/l (95-108); CREATININE 0.7 mg/dL (0.7-1.3); GFR > 60 ML/MIN (>=60 (CALC)); GFR FOR AFR.AMER. > 60 ML/MIN (>=60 (CALC)); POTASSIUM 4.4 mmol/l (3.5-5.1); SODIUM 135 mmol/l (137-146)
--- NOTE | 2020-08-14 07:00 | NUR ---
PT REPORT RECEIVED FROM NIGHT NURSENINA
--- NOTE | 2020-08-14 08:00 | NUR ---
PT WAS FOUND RESTNG IN BED IN SEMI-FOWLERS POSITION;PT IS A&0X3;PT HAS NO REPORTS OF PAIN AT THIS TIME;VS AND ASSESSMENT WERE COMPLETED;HEART SOUNDS ARE REGULAR IN RATE AND RHYTHM;TELE IS IN PLACE;LUNG SOUNDS ARE CLEAR;RESPIRATIONS ARE EVEN AND UNLABORED ON RA;#20G IV IN RAC IS RUNNING NS@50ML/HR;IV SITE IS FREE OF COMPLICATIONS AT THIS TIME;PT HAS 2+EDEMA PRESENT IN LL BILATERALLY;PT ALSO HAS A WOUND ON HIS LEFT RHODES THAT HAS DRESSINGS IN PLACE THAT ARE CDI;PT IS UNDER FOR WOUND CARE;DRESSING IN PLACE OVER PARACENTESIS (08/13/20) IS CDI AT THIS TIME;SAFETY PRECAUTIONS IN PLACE;CALL LIGHT WITHIN REACH;BED IN LOWEST POSITION;WILL CONTINUE TO MONITOR.
[2020-08-14 08:05] VITALS: BP 122/66
--- NOTE | 2020-08-14 11:14 | NUR ---
AND LUCIA MOSCOSO AT BEDSIDE DISCUSSING POC WITH PT
--- NOTE | 2020-08-14 11:45 | NUR ---
DRESSING CHANGE COMPLETED ON PARACENTESIS PUNCTURE WOUND;DRESSING IS GAUZE WITH A LARGE TEGADERM PLACED OVER THE TOP;WILL PERFORM ADDITIONAL DRESSING CHANGES NEEDED.
[2020-08-14 11:55] LABS: URINE BILIRUBIN - DIPSTICK NEGATIVE (NEGATIVE); URINE BLOOD DIPSTICK NEGATIVE (NEGATIVE); URINE COLOR YELLOW; URINE GLUCOSE - DIPSTICK NEGATIVE (NEGATIVE); URINE KETONE NEGATIVE (NEGATIVE); URINE LEUK ESTERASE NEGATIVE (NEGATIVE); URINE PROTEIN - DIPSTICK NEGATIVE (NEG-TRACE); URINE SPECIFIC GRAVITY 1.015; URINE UROBILINOGEN - DIPSTICK 0.2 E.U./dL (0.2)
[2020-08-14 11:56] LABS: URINE NITRITE - DIPSTICK NEGATIVE (Negative)
--- NOTE | 2020-08-14 12:00 | NUR ---
PT WAS FOUND RESTING IN BED WATCHING TV;PT IS REPORTING NO NEEDS OR CONCERNS AT THIS TIME;TELE IS IN PLACE;SAFETY PRECAUTIONS IN PLACE;CALL LIGHT WITHIN REACH;BED IN LOWEST POSITION;PT ASKED TO CALL IF NEEDING ANYTHING;WILL CONTINUE TO MONITOR.
--- NOTE | 2020-08-14 15:17 | NUR ---
PT CONTINUES TO HAVE SMALL AMOUNTS OF SEROSANGUINOUS DRAINAGE FROM THE PARACENTESIS PUNCTURE SITE ON RT UPPER ABDOMEN;DRESSING CHANGE WAS PERFORMED USING 2X2 GAUZE AND LARGE TEGADERM TO COVER;WILL CONTINUE TO MONITOR FOR NEEDED CHANGES OR CHANGE IN FLUIDS.
[2020-08-14 15:30] VITALS: BP 111/66
--- NOTE | 2020-08-14 16:00 | NUR ---
PT WAS FOUND TO BE RESTING IN BED;PT HAS NO REPORTS OF PAIN AT THIS TIME;TELE IS IN PLACE;#20G IV IN RAC IS RUNNING NS @10ML/HR;IV SITE APPEARS FREE OF COMPLICATIONS AT THIS TIME;SAFETY PRECAUTIONS IN PLACE;CALL LIGHT WITHIN REACH;BED IN LOWEST POSITION;WILL CONTINUE TO MONITOR.
--- NOTE | 2020-08-14 17:42 | NUR ---
PT WOUND CARE PERFORMED PER ORDERS;WOUND WAS CLEANSED WITH NS AND PATTED DRY;4X5 AQUACELL WHITE FOAM DRESSING WAS PLACED IN WOUND;KERLEX WAS PLACED ON TOP OF AQUACELL AND SECURED WITH PAPER TAPE;NETTING WAS PLACED OVER DRESSING FOR ADDED SECURITY;PT TOLERATED WELL.
[2020-08-14 19:00] VITALS: BP 120/63
--- NOTE | 2020-08-14 20:45 | NUR ---
PT RESTING IN BED AT THIS TIME. PT IS MOSTLY ARABIC SPEAKING CREATING A SLIGHT LANGUAGE BARRIER. ASSESSMENTS COMPLETED, PLEASE SEE DOCUMENTATION. PT SCLERA REMAINS YELLOWISH IN COLOR R/T LIVER DISEASE. SAFETY PRECAUTIONS IN PLACE, BED IN LOWEST POSITION, CALL LIGHT WITHIN REACH. WILL MONITOR
[2020-08-15] VITALS: BP 122/71
--- NOTE | 2020-08-15 00:37 | NUR ---
PT RESTING QUIETLY AT THIS TIME. NO COMPLAINTS VOICED. BREATHING EVEN AND UNLABORED. NS CONTINUES @ 50ML/HR. SAFETY PRECUATIONS IN PLACE. WILL MONITOR
[2020-08-15 04:00] VITALS: BP 121/70
[2020-08-15 05:37] LABS: HEMATOCRIT 32.6 % (39.0-50.0); MEAN CELL VOLUME 103.2 fL CALC (80.0-100.0); MEAN CORPUSCULAR HGB 34.8 pG CALC (26.0-32.0); MEAN CORPUSCULAR HGB CONC 33.7 g/dL CAL (32.0-36.0); RED BLOOD COUNT 3.16 mill/uL (4.70-6.10); RED CELL DISTRI WIDTH 15.8 % (11.5-15.5)
[2020-08-15 05:57] LABS: ANION GAP 8 (6-22 (CALC)); BUN 12 mg/dL (9-20); BUN/CREATININE RATIO 20 (12-20 (CALC)); CARBON DIOXIDE 23 mmol/l (22-30); CHLORIDE 107 mmol/l (95-108); CREATININE 0.6 mg/dL (0.7-1.3); GFR > 60 ML/MIN (>=60 (CALC)); GFR FOR AFR.AMER. > 60 ML/MIN (>=60 (CALC)); MAGNESIUM 1.7 mg/dL (1.6-2.3); POTASSIUM 4.2 mmol/l (3.5-5.1); SODIUM 133 mmol/l (137-146)
--- NOTE | 2020-08-15 06:02 | NUR ---
PT RESTING QUIETLY AT THIS TIME. NO COMPLAINTS VOICED. DENIES PAIN. BREATHING EVEN AND UNLABORED. SAFETY PRECAUTIONS IN PLACE. WILL MONITOR
--- NOTE | 2020-08-15 07:00 | NUR ---
PT REPORT RECEIVED FROM NIGHT NURSEEDEN.
[2020-08-15 07:25] VITALS: BP 129/77
--- NOTE | 2020-08-15 07:55 | NUR ---
PERFORMED DRESSING CHANGE ON PARACENTESIS;REMOVED OLD DRESSING WITH SMALL AMOUNT OF SEROSANGUINEOUS DRAINAGE NOTED;PLACED SMALL ABD PADS WITH PAPER TAPE;WILL CONTINUE TO MONITOR.
--- NOTE | 2020-08-15 08:00 | NUR ---
PT WAS FOUND RESTING IN BED IN SEMI-FOWLERS POSITION;PT IS A&OX3;VS AND ASSESSMENT WERE COMPLETED;PT IS REPORTING NO PAIN AT THIS TIME;HEART SOUNDS ARE REGULAR IN RATE AND RHYTHM;TELE IS IN PLACE;LUNG SOUNDS ARE CLEAR;RESPIRATIONS ARE EVEN AND UNLABORED ON RA;#20G IV IN RAC IS RUNNING NS@10ML/HR;IV SITE APPEARS FREE OF COMPLICATIONS AT THIS TIME;PT HAS SOME EDEMA PRESENT IN THE LE BILATERALLY;PT HAS A WOUND ON HIS LEFT RHODES;PT IS CURRENTLY UNDER THE CARE OF AND SHE HAS ORDERS IN PLACE FOR DRESSING CHANGES IN CHART;DRESSING IS CDI AT THIS TIME;SAFETY PRECAUTIONS IN PLACE;CALL LIGHT WITHIN REACH;BED IN LOWEST POSITION;WILL CONTINUE TO MONITOR.
--- NOTE | 2020-08-15 10:10 | NUR ---
AND LUCIA MOSCOSO AT BEDSIDE DISCUSSING POC WITH PT
[2020-08-15] MEDS ORDERED: ALDACTONE25 MG PO (10:19)
[2020-08-15] MEDS ORDERED: LACTULOSE10 GM/15 M PO (10:19)
[2020-08-15] MEDS ORDERED: CEFTRIAXONE2 GM IV (10:19)
[2020-08-15] MEDS ORDERED: FUROSEMIDE20 MG PO (10:19)
[2020-08-15 11:18] VITALS: BP 127/79
--- NOTE | 2020-08-15 12:00 | NUR ---
PT WAS FOUND RESTING IN BEDSIDE CHAIR EATING LUNCH;PT HAS NO REPORTS OF PAIN AT THIS TIME;TELE IS IN PLACE;IV FLUIDS RUNNING;SAFETY PRECAUTIONS IN PLACE;CALL LIGHT WITHIN REACH;BED IN LOWEST POSITION;WILL CONTINUE TO MONITOR.
[2020-08-15] MEDS ORDERED: ROCEPHIN1 G1 IV (12:20)
[2020-08-15 15:26] VITALS: BP 125/71
--- NOTE | 2020-08-15 16:00 | NUR ---
D/C INSTRUCTIONS GIVEN TO PT IN [place]. INSTRUCTIONS GIVEN TO RETURN X3 DAYS TO THE HOSPITAL FOR OUTPT ABX THERAPY, PT INSTRUCTED TO RETURN STARTING TOMORROW @ 1300, PT VERBALIZED UNDERSTANDING. EDUCATION/INSTRUCTIONS ON D/C MEDICATIONS GIVEN, PT VERBALIZED UNDERSTANDING.
--- NOTE | 2020-08-15 16:43 | NUR ---
PT WAS TRANSPORTED VIA WC IN STABLE CONDITION TO LOBBY ACCOMPANIED BY STAFF;ALL PT BELONGINGS WERE SENT WITH PT.
== END 2020-08-15 16:43 | disposition home or self-care (01) | DRG 432 ==
LOC: ED 10:27 → ED-I 14:44 → ED 14:53 → MS2 14:54
PROVIDERS: Nurse Practitioner; ADMIT Internal Medicine; ATTEND Internal Medicine
PROC: 0W9G3ZZ Drainage of Peritoneal Cavity, Percutaneous Approach (ICD-10-PCS; principal; 2020-08-13)
DX: K70.31 Alcoholic cirrhosis of liver with ascites (principal); K65.2 Spontaneous bacterial peritonitis; K76.6 Portal hypertension; L97.828 Non-pressure chronic ulcer of other part of left lower leg with other specified severity; I87.8 Other specified disorders of veins; I11.0 Hypertensive heart disease with heart failure; I50.9 Heart failure, unspecified; J44.9 Chronic obstructive pulmonary disease, unspecified; F10.11 Alcohol abuse, in remission; T50.1X6A Underdosing of loop [high-ceiling] diuretics, initial encounter; T50.0X6A Underdosing of mineralocorticoids and their antagonists, initial encounter; Z91.128 Patient's intentional underdosing of medication regimen for other reason; Z20.822 Contact with and (suspected) exposure to COVID-19
CPT/HCPCS: P9047; Q9967

== ENCOUNTER 2020-08-27 21:53 | Inpatient (IN) | payer SELFPAY ==
[~2020-08-27] VITALS: Ht 167.6 cm; Wt 79.0 kg
[~2020-08-27 21:53] MED LIST changes: +ALDACTONE25 MG PO; +CEFTRIAXONE2 GM IV; +FUROSEMIDE20 MG PO; +ROCEPHIN1 G1 IV
--- NOTE | 2020-08-27 22:03 | NUR ---
PT AMBULATES WITH RAMBLING GAIT TO ROOM FOR BEDSIDE TRIAGE. PT RECENTLY HERE FOR ASCITES WITH PARACENTESIS AND QUESTIONABLE INFECTION BACK TO DAY FOR CONFUSION AND ALTERED MENTAL STATUS.
--- NOTE | 2020-08-27 23:00 | NUR ---
PT CONFUSED BUT COOPERATIVE, OFFERS NO COMPALINTS DENIES PAIN, PT UNKEMPT AND DIRTY SKIN. CALL DEIDRA WILKINSON
--- NOTE | 2020-08-27 23:15 | NUR ---
PER FRIEND PT HAS BEEN TAKING HIS MEDICATIONS BUT VAGUE WITH DETAILS SO UNABLE TO DETERMINE ACCURACY OF THIS INFORMATION.
[2020-08-27 23:25] LABS: HEMATOCRIT 35.9 % (39.0-50.0); IMMATURE GRANULOCYTES 0.2 % (0.0-5.0); MEAN CELL VOLUME 105.6 fL CALC (80.0-100.0); MEAN CORPUSCULAR HGB 35.3 pG CALC (26.0-32.0); MEAN CORPUSCULAR HGB CONC 33.4 g/dL CAL (32.0-36.0); NEUT# 2.64 thou/uL (1.82-7.42); RED BLOOD COUNT 3.4 mill/uL (4.70-6.10); RED CELL DISTRI WIDTH 17.2 % (11.5-15.5)
[2020-08-27 23:33] LABS: ALBUMIN 2.9 g/dL (3.2-5.0); ALKALINE PHOSPHATASE 164 u/l (38-126); AMYLASE 118 u/l (30-110); ANION GAP 10 (6-22 (CALC)); BUN 16 mg/dL (9-20); BUN/CREATININE RATIO 23 (12-20 (CALC)); CARBON DIOXIDE 23 mmol/l (22-30); CHLORIDE 106 mmol/l (95-108); CREATININE 0.7 mg/dL (0.7-1.3); ETHYL ALCOHOL 0 mg/dl (0-30); GFR > 60 ML/MIN (>=60 (CALC)); GFR FOR AFR.AMER. > 60 ML/MIN (>=60 (CALC)); LIPASE 131 u/l (23-300); MAGNESIUM 1.9 mg/dL (1.6-2.3); POTASSIUM 3.9 mmol/l (3.5-5.1); SGOT/AST 43 u/l (17-59); SODIUM 135 mmol/l (137-146); TOTAL PROTEIN 7.2 g/dL (6.3-8.2)
[2020-08-27 23:35] LABS: ACT PARTIAL THROMBO TIME 39.8 SECONDS (20.0-32.5); INTERNATIONAL NORMALIZED RATIO 1.4 RATIO (0.7-1.3); PROTHROMBIN TIME 13.9 SECONDS (9.0-12.5)
--- NOTE | 2020-08-28 00:37 | NUR ---
COMPLETED EKG, PT NOTED TO HAVE FOUL ODOR COMING FROM LLE WITH DRESSING NOTED, MD AWARE. WILL UNWRAP FOR EVAL
--- NOTE | 2020-08-28 01:14 | NUR ---
PT HAS DRESSING TO LLE, WITH LARGE OLD VENOUS STASIS ULCER WITH OLD DRESSING NOTED, VERY FOUL ODOR NOTED, ULCER IS MEASURED AT 9.5 CM X 4.9 CM X 0.3 CM, COVERED WITH ABSORBENT FOAM DRESSING AND SECRUED WITH KERLIX AND COBAN. PT TOLERATED WELL AND PARTIAL BATH PROVIDED WELL LINEN CHANGE.
--- NOTE | 2020-08-28 01:46 | NUR ---
REPORT CALLED TO YENY MCCORD ON MED SURG
--- NOTE | 2020-08-28 01:49 | NUR ---
MED SURG STAFF AWARE OF NEED FOR CULTURE AT NEXT DRESSING CHANGE. BLEONGINGS RECORD COMPLETED WITH ANGELA CHE
[2020-08-28 02:00] VITALS: BP 161/85
--- NOTE | 2020-08-28 02:00 | NUR ---
PT TRASNPORTED TO MED SURG VIA WHEELCHAIR, ALL BELONGINGS SENT WITH PT
--- NOTE | 2020-08-28 02:07 | NUR ---
PT ARRIVED TO MED SURG VIA WC ACCOMPANIED BY ED NURSE. HE APPEARS TO BE STABLE AT THIS TIME. V/S OBTAINED, PT SETTLED IN THE BED. STEVE SANCHEZ TRANSLATING. PT LOC TO SELF, MONTH, NOT TO YEAR, HE KNOWS HE IS IN A HOSPITAL, BUT UNABLE TO TELL US WHICH ONE. UNABLE TO GIVE MEDICAL HISTORY AT THIS TIME. HE WAS UNABLE TO TELL US WHAT HAPPENED TO BRING HIM IN, WHEN HIS LAST STOOL OUTPUT WAS OR HOW HE RECEIVED THE WOUND ON HIS LEG.
--- NOTE | 2020-08-28 02:13 | NUR ---
SPOKE WITH NURSE FROM ED REGARDING ANTIBIOTIC THERAPY, STATES THE DOCTOR WAS MADE AWARE OF WOUND. I ALSO DISCUSSED THE NEED FOR A URINE TO BE COLLECTED AND SHE REPORTED SMALL AMOUNT OF OUTPUT BY PT, BUT WAS SPILLED AND UNABLE TO BE COLLECTED. SHE STATES THAT THE PT HAD NOT BEEN IN THE ED ALL THAT LONG, NO CATHETER ORDERED AT THIS TIME. WILL CONTINUE TO MONITOR FOR OUTPUT. PT DENIES THE NEED TO GO AT THIS TIME, BUT REPORTED TO US THAT HE HAS NOT BEEN HAVING DIFFICULTY URINATING.
--- NOTE | 2020-08-28 03:00 | NUR ---
ABD IS DISTENDED AND FIRM WITH ACTIVE BOWEL SOUNDS, HYPERACTIVE ON LUQ. LUNG SOUNDS ARE CLEAR. SKIN APPEARS INTACT OTHER THAN LLE WOUND, WOUND WAS CLEANED AND DRESSED AND PICTURES TAKEN IN ED. PT LOC TO SELF AND MONTH ONLY. HE IS ABLE TO TELL US THAT HE LIVES WITH HIS [id number]-ITE. [facility] STAFF TRANSLATED AT THIS TIME.
[2020-08-28 04:00] VITALS: BP 151/85
--- NOTE | 2020-08-28 04:00 | NUR ---
PT REPORTS THAT HE IS UNABLE TO URINATE. MULTIPLE ATTEMPTS HAVE BEEN MADE TO ASSIST HIM USING URINAL OR BSC TO NO AVAIL. FREGOSO CATHETER PLACED WITH 875CC OF DARK YELLOW URINE IMMEDIATELY OUT.
[2020-08-28 06:25] LABS: HEMATOCRIT 33.9 % (39.0-50.0); HEMOGLOBIN 11.4 g/dl (14.0-18.0); IMMATURE GRANULOCYTES 0.2 % (0.0-5.0); MEAN CELL VOLUME 105.3 fL CALC (80.0-100.0); MEAN CORPUSCULAR HGB 35.4 pG CALC (26.0-32.0); MEAN CORPUSCULAR HGB CONC 33.6 g/dL CAL (32.0-36.0); NEUT# 2.37 thou/uL (1.82-7.42); RED BLOOD COUNT 3.22 mill/uL (4.70-6.10); RED CELL DISTRI WIDTH 16.9 % (11.5-15.5)
[2020-08-28 06:31] LABS: URINE BILIRUBIN - DIPSTICK NEGATIVE (NEGATIVE); URINE BLOOD DIPSTICK SMALL (NEGATIVE); URINE COLOR YELLOW; URINE GLUCOSE - DIPSTICK NEGATIVE (NEGATIVE); URINE KETONE NEGATIVE (NEGATIVE); URINE PROTEIN - DIPSTICK NEGATIVE (NEG-TRACE)
[2020-08-28 06:35] LABS: URINE NITRITE - DIPSTICK NEGATIVE (Negative)
[2020-08-28 06:36] LABS: URINE LEUK ESTERASE NEGATIVE (NEGATIVE)
[2020-08-28 06:38] LABS: URINE EPITHELIAL CELLS FEW EPI/hpf (0-FEW)
[2020-08-28 06:39] LABS: URINE BACTERIA FEW hpf
[2020-08-28 06:49] LABS: ALBUMIN 2.6 g/dL (3.2-5.0); ALKALINE PHOSPHATASE 145 u/l (38-126); ANION GAP 9 (6-22 (CALC)); BILIRUBIN, TOTAL 3.3 mg/dL (0.0-1.4); BUN 13 mg/dL (9-20); BUN/CREATININE RATIO 21 (12-20 (CALC)); CARBON DIOXIDE 23 mmol/l (22-30); CHLORIDE 108 mmol/l (95-108); CREATININE 0.6 mg/dL (0.7-1.3); GFR > 60 ML/MIN (>=60 (CALC)); GFR FOR AFR.AMER. > 60 ML/MIN (>=60 (CALC)); SGOT/AST 39 u/l (17-59); SODIUM 135 mmol/l (137-146); TOTAL PROTEIN 6.7 g/dL (6.3-8.2)
--- NOTE | 2020-08-28 07:00 | NUR ---
RECIEVED REPORT FROM FLEX SAINI
[2020-08-28 07:59] VITALS: BP 133/77
--- NOTE | 2020-08-28 08:34 | NUR ---
PT SLEEPING IN LOW FOWLERS POSITION UPON ENTERING ROOM. PT IS A/O TO NAME ONLY AND YI SPEAKING. STEVE THOMPSON AT BEDSIDE TO ASSIST WITH TRANSLATION. ASSESSMENT AND VITALS COMPLETED. BP 133/77, HR 73, O2 9% ON ROOM AIR. RESPIRATIONS ARE EVEN AND UNLABORED WITH NO DISTRESS NOTED. LUNG SOUNDS ARE CLEAR. HEART RHYTHM IS NORMAL WITH TELE IN PLACE, SR PER ER MONITORING. #20G IN LAC FLUSHED, SITE APPEARS HEALTHY AND PATENT. 2+ EDEMEA NOTED TO BLE. DRESSING TO LLE NOTED, REMAINS CDI. FREGOSO CATHATER IN PLACE, TUBING PATENT.CLEAR YELLOW URINE NOTED. PT DENIES OF ANY PAINS OR DISCOMFORTS AT THIS TIME. ALL SAFETY PRECAUTIONS ARE IN PLACE WITH CALL LIGHT IN REACH AND BED ALARM ACTIVATED. WILL CONTINUE TO MONITOR.
--- NOTE | 2020-08-28 09:35 | NUR ---
PT TRANSPORTED TO RADIOLOGY VIA [facility] ACCOMPAINED BY RADIOLOGY STAFF UB STABLE CONDITION.
--- NOTE | 2020-08-28 10:00 | NUR ---
TELE MONITORING REMOVED PER ORDER.
--- NOTE | 2020-08-28 10:15 | NUR ---
PT BACK FROM [facility]ES[facility]. DRESSING TO RIGHT LOWER ABD QUADRANT CDI. PT RESTING IN SEMI FOWLERS POSITION. REPIRSATIONS ARE EVEN AND UNLABORED WITH NO DISRTESS. FREGOSO CATHATER REMAINS PATENT. ALL SAFETY PRECAUTIONS ARE IN PLACE WITH CALL LIGHT IN REACH AND BED ALARM ACTIVE. WILL CONTINUE TO MONITOR.
[2020-08-28 10:22] VITALS: BP 140/77
--- NOTE | 2020-08-28 12:02 | NUR ---
PT SLEEPING IN SEMI FOWLERS POSITION. REPSIRATIONS ARE EVEN AND UNLABORED WITH NO DISRTESS NOTED. #20G IN LAC REMAINS HEALTHY AND PATENT. FREGOSO CATHATER PATENT. NO SIGNS OF ANY PAINS OR DISCOMFORTS AT THIS TIME. ALL SAFETY PRECAUTIONS ARE IN PLACE WITH CALL LIGHT IN REACH AND BED ALARM ACTIVATED. WILL CONTINUE TO MONITOR.
--- NOTE | 2020-08-28 13:17 | NUR ---
VISITOR AT BEDSIDE.
[2020-08-28 15:40] VITALS: BP 131/79
--- NOTE | 2020-08-28 16:17 | NUR ---
CALL RECIEVED BY WOUND CARE FOR NEW WOUND CARE CONSULT CAN BE PLACED. AUTOMOTIVE TIRE WORKER INFORMED THAT CONSULT IS ALREADY IN PLACE. AUTOMOTIVE TIRE WORKER INFORMED THAT NEW ONE WOULD HAVE TO BE ORDERED DUE TO PREVIOUS ONE BEING FROM ER. NEW ORDER PLACED.
--- NOTE | 2020-08-28 16:38 | NUR ---
PT SLEEPING IN SEMI FOWLERS POSITION. RESPIRATIONS ARE EVEN AND UNLABORED WITH NO DISRTSS NOTED. ALBUMIN INFUSIGN WITH EASE. #20G LAC APPEARS HEALTHY AND PATENT. FREGOSO CATHATER IN PLACE, TUBING PATENT. 450 OF MARILYN URINE NOTED. NO SIGNS OF ANY PAINS OR DISCOMFORTS AT THIS TIME. ALL SAFETY PRECAUTIONS ARE IN PLACE WITH CALL LIGHT IN REACH AND BED ALARM ACTIVATED, WILL CONTINUE TO MONITOR.
[2020-08-28 19:00] VITALS: BP 122/73
--- NOTE | 2020-08-28 19:54 | NUR ---
SCHEDULED MEDICATIONS AND PRN MEDICATION ADMINISTERED, SEE E-MAR. PT DENIES ANY NEEDS AT THIS TIME. PLAN OF CARE REVIEWED, PT DENIES QUESTIONS. ITEMS WITHIN REACH, BED LOCKED IN LOW POSITION W/ BEDRAILS UP X2. CALL GAY WITHIN REACH, AGREES TO CALL PRN.
--- NOTE | 2020-08-29 | NUR ---
PT LAYING IN BED WITH EYES CLOSED, APPEARS TO BE SLEEPING, APPEARS COMFORTABLE AND IN NO DISTRESS. RESPIRATIONS REGULAR AND UNLABORED. ITEMS REMAIN WITHIN REACH, CALL GAY REMAINS WITHIN REACH. BED REMAINS LOCKED AND IN LOW POSITION WITH BEDRAILS UP X2. WILL CONTINUE TO MONITOR.
[2020-08-29 04:00] VITALS: BP 138/84
--- NOTE | 2020-08-29 04:00 | NUR ---
PT RESTING IN BED, NO SIGNS OF DISTRESS NOTED, RESP EVEN AND UNLABORED. PT VOICES NO NEEDS OR COMPLAINTS AT THIS TIME. CALL LIGHT IN REACH, CONTINUE TO MONITOR.
[2020-08-29 06:20] LABS: MEAN CELL VOLUME 105.4 fL CALC (80.0-100.0); MEAN CORPUSCULAR HGB 35.1 pG CALC (26.0-32.0); MEAN CORPUSCULAR HGB CONC 33.3 g/dL CAL (32.0-36.0); RED BLOOD COUNT 3.13 mill/uL (4.70-6.10); RED CELL DISTRI WIDTH 16.7 % (11.5-15.5)
[2020-08-29 06:36] LABS: ANION GAP 9 (6-22 (CALC)); BUN 12 mg/dL (9-20); BUN/CREATININE RATIO 21 (12-20 (CALC)); CARBON DIOXIDE 22 mmol/l (22-30); CHLORIDE 106 mmol/l (95-108); CREATININE 0.6 mg/dL (0.7-1.3); GFR > 60 ML/MIN (>=60 (CALC)); GFR FOR AFR.AMER. > 60 ML/MIN (>=60 (CALC)); MAGNESIUM 1.8 mg/dL (1.6-2.3); POTASSIUM 3.9 mmol/l (3.5-5.1); SODIUM 133 mmol/l (137-146)
--- NOTE | 2020-08-29 07:00 | NUR ---
RECIEVED REPORT FROM FLEX DIAZ
[2020-08-29 08:14] VITALS: BP 118/74
--- NOTE | 2020-08-29 08:14 | NUR ---
PT RESTING IN SEMI FOWLERS POSITION. PT IS A/O TO NAME AND BIRTHDATE.[place] SPEAKING ONLY. [facility] STAFF TO ASSIST WITH TRANSLATION. ASSESSMENT AND VITALS COMPLETED. BP 118/74, HR 78, O2 99% ON ROOM AIR. RESIRATIONS ARE EVEN AND UNLABORED WITH NO DISRTESS NOTED. LUNG SOUNDS ARE CLEAR. HEART RHYTHM IS NORMAL. BOWEL SOUNDS ARE ACTIVE. 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 RADIAL AND PEDAL PULSES ARE STRONG. #20G IN LAC FLUSHED, SITE APPEARS HEALTHY AND PATENT. DRESSING TO LLE CDI. 2+ EDEMA NOTED TO BLE. FREGOSO CATHATER IN PLACE, MARILYN URINE NOTED. PT DENIES OF ANY PAINS OR DISCOMFORTS AT THIS TIME. ALL SAFETY PRECAUTIONS ARE IN PLACE WITH CALL LIGHT IN REACH AND BED ALARM ACTIVATED. WILL CONTINUE TO MONITOR.
--- NOTE | 2020-08-29 09:16 | NUR ---
DR GOEL AT BEDSIDE
--- NOTE | 2020-08-29 09:41 | NUR ---
WOUND CARE AT BEDSIDE. DRESSIG TO LLE CHANGED. HYDROGEL APPLIED.WOUND CULTURE OBATINED. APTIC FOAM, KRELEX AND GARRETT WRAPPED APPLIED. DRESSING REMAINS CDI. DRESSING ORDERS OBTAINED. PT TOLERATED WELL.
--- NOTE | 2020-08-29 12:15 | NUR ---
PT RESTING IN SEMI FOWLERS POSITION WATCHING TV. RESPIRATIONS ARE EVEN AND UNLABORED WITH NO DISTRESS NOTED. #20G IN LAC REMAINS IN PLACE. FREGOSO CATHATER IN PLACE, MARILYN URINE NOTED. DRESSING TO LLE CDI. PT DENIES OF ANY PAINS OR DISCOMFORTS AT THIS TIME. ALL SAFETY PRECAUTIONS ARE IN PLACE WITH CALL LIGHT IN REACH. WILL CONTINUE TO MONITOR.
[2020-08-29 14:57] VITALS: BP 112/68
--- NOTE | 2020-08-29 16:03 | NUR ---
PT RESTING IN HIGH FOWLERS POSITION WATCHING TV. RESPIRATIONS ARE EVEN AND UNLABORED WITH NO DISTRESS NOTED. #20G LAC REMAINS HEALTHY AND PATENT. FREGOSO CATHATER IN PLACE, TUBING PATENT. APPLE JUICE PROVIDED. PT DENIES OF ANY PAINS OR DISCOMFORTS AT THIS TIME.ALL SAFETY PRECAUTIONS ARE IN PLACE WITH CALL LIGHT IN REACH AND BED ALARM ACTIVATED. WILL CONTINUE TO MONITOR.
[2020-08-29 19:00] VITALS: BP 123/72
--- NOTE | 2020-08-29 20:00 | NUR ---
PHYSICAL ASSESMENT COMPLETE. PT CURRENTLY DENIES PAIN OR DISCOMFORT. SCHEDULED MEDICATIONS AND PRN MEDICATION ADMINISTERED, SEE E-MAR. PT DENIES ANY NEEDS AT THIS TIME. PLAN OF CARE REVIEWED, PT DENIES QUESTIONS, VERBALIZES UNDERSTANDING. ITEMS WITHIN REACH, BED LOCKED IN LOW POSITION W/ BEDRAILS UP X2. CALL GAY WITHIN REACH, AGREES TO CALL PRN.
[2020-08-30 04:00] VITALS: BP 112/63
[2020-08-30 04:50] LABS: HEMATOCRIT 30.1 % (39.0-50.0); HEMOGLOBIN 10.2 g/dl (14.0-18.0); IMMATURE GRANULOCYTES 0.2 % (0.0-5.0); MEAN CELL VOLUME 104.9 fL CALC (80.0-100.0); MEAN CORPUSCULAR HGB 35.5 pG CALC (26.0-32.0); MEAN CORPUSCULAR HGB CONC 33.9 g/dL CAL (32.0-36.0); NEUT# 2.52 thou/uL (1.82-7.42); RED BLOOD COUNT 2.87 mill/uL (4.70-6.10); RED CELL DISTRI WIDTH 16.7 % (11.5-15.5)
[2020-08-30 05:08] LABS: ALBUMIN 2.3 g/dL (3.2-5.0); ALKALINE PHOSPHATASE 114 u/l (38-126); ANION GAP 7 (6-22 (CALC)); BUN 11 mg/dL (9-20); BUN/CREATININE RATIO 22 (12-20 (CALC)); CARBON DIOXIDE 22 mmol/l (22-30); CHLORIDE 107 mmol/l (95-108); CREATININE 0.5 mg/dL (0.7-1.3); GFR > 60 ML/MIN (>=60 (CALC)); GFR FOR AFR.AMER. > 60 ML/MIN (>=60 (CALC)); POTASSIUM 3.9 mmol/l (3.5-5.1); SGOT/AST 29 u/l (17-59); SODIUM 132 mmol/l (137-146); TOTAL PROTEIN 5.7 g/dL (6.3-8.2)
[2020-08-30 05:21] LABS: BILIRUBIN, TOTAL 1.9 mg/dL (0.0-1.4)
[2020-08-30 08:00] VITALS: BP 131/69
--- NOTE | 2020-08-30 08:02 | NUR ---
PT SITTING IN BED. A&O TO NAME AND PLACE, HESITATION WITH CURRENT TIME. REINFORCEMENT NEEDED. CLEAR/DIMINISHED BREATH SOUNDS HEARD UPON ASUCULTATION. ACTIVE BOWEL SOUNDS X4 QUADRANTS. ABD SLIGHTLY DISTENDED BUT SOFT, PT REPORTS SOME NOTICEABLE IMPROVEMENT. FREGOSO CATHETER DRAINING VIA GRAVITY WITH YELLOW URINE NOTED. DRESSING TO LT LEG CDI. #20 LAC HEALTHY ANY PATENT. DENIES ANY PAIN AT THIS TIME. ASSESSMENT COMPLETED. DISCUSSED POC, REINFORCEMENT NEEDED. CALL LIGHT AND PERSONAL BELONGINS WITHIN REACH. BED ALARM IN PLACE FOR SAFETY.
--- NOTE | 2020-08-30 12:29 | NUR ---
PT SITTING IN RECLINER. DAILY DRESSING CHANGED PER DR METZGER'S WOUND CARE ORDERS. PT TOLERATED WELL. WOUND PHOTO OBTAINED, PLACED IN CHART. NO OTHER NEEDS AT THIS TIME. CALL LIGHT WITHIN REACH.
[2020-08-30] MEDS ORDERED: LACTULOSE10 GM/15 M PO (12:30)
--- NOTE | 2020-08-30 13:50 | NUR ---
PT SITTING IN RECLINER, 300 CC OF URINE EMPTIED FROM FREGOSO CATHETER COLLECTION BAG. 9 CC REMOVED FROM FREGOSO CATHETER BALLOON. FREGOSO CATHETER REMOVED, PT TOELRATED WELL. URINAL GIVEN TO PT, PT INSTRUCTED TO CALL WHEN HE HAS VOIDED PRIOR TO BEING D/C. PT VERBALIZED UNDERSTANDING, CALL LIGHT WITHIN REACH.
[2020-08-30 14:46] VITALS: BP 112/66
--- NOTE | 2020-08-30 17:08 | NUR ---
D/C INSTRUCTIONS GIVEN TO PT. PT VERBALIZED UNDERSTANDING.
--- NOTE | 2020-08-30 17:49 | NUR ---
Discharge instructions given. Patient verbalizes understanding of same. Discharged in stable condition via wheelchair, nely espana approved by Mary RN, pt d/c to home with staff. All belongings sent with pt.
== END 2020-08-30 17:25 | disposition home or self-care (01) | DRG 433 ==
LOC: ED 21:53 → ED-I 08-28 00:24 → ED 08-28 00:42 → MS2 08-28 00:43
PROVIDERS: Nurse Practitioner; ADMIT Internal Medicine; ATTEND Internal Medicine
PROC: 0W9G3ZZ Drainage of Peritoneal Cavity, Percutaneous Approach (ICD-10-PCS; principal; 2020-08-28)
DX: K70.40 Alcoholic hepatic failure without coma (principal); E72.20 Disorder of urea cycle metabolism, unspecified; K76.6 Portal hypertension; I87.312 Chronic venous hypertension (idiopathic) with ulcer of left lower extremity; L97.929 Non-pressure chronic ulcer of unspecified part of left lower leg with unspecified severity; K70.31 Alcoholic cirrhosis of liver with ascites; I11.0 Hypertensive heart disease with heart failure; I50.9 Heart failure, unspecified; J44.9 Chronic obstructive pulmonary disease, unspecified; Z20.822 Contact with and (suspected) exposure to COVID-19
CPT/HCPCS: P9047

== ENCOUNTER 2021-09-17 10:18 | Emergency (ER) | payer SELFPAY ==
[2021-09-17] VITALS (7 sets, daily range): BP systolic 121–133; BP diastolic 68–77
[~2021-09-17] VITALS: Ht 167.6 cm; Wt 100.0 kg
[2021-09-17 11:40] LABS: HEMATOCRIT 36.9 % (39.0-50.0); HEMOGLOBIN 12.3 g/dl (14.0-18.0); MEAN CELL VOLUME 103.7 fL CALC (80.0-100.0); MEAN CORPUSCULAR HGB 34.6 pG CALC (26.0-32.0); MEAN CORPUSCULAR HGB CONC 33.3 g/dL CAL (32.0-36.0); NEUT# 2.15 thou/uL (1.82-7.42); RED BLOOD COUNT 3.56 mill/uL (4.70-6.10); RED CELL DISTRI WIDTH 13.4 % (11.5-15.5)
[2021-09-17 11:58] LABS: ALBUMIN 2.9 g/dL (3.2-5.0); ALKALINE PHOSPHATASE 148 u/l (38-126); ANION GAP 6 (6-22 (CALC)); BUN 8 mg/dL (9-20); BUN/CREATININE RATIO 15 (12-20 (CALC)); CARBON DIOXIDE 27 mmol/l (22-30); CHLORIDE 106 mmol/l (95-108); CREATININE 0.5 mg/dL (0.7-1.3); GFR FOR AFR.AMER. > 60 ML/MIN (>=60 (CALC)); GFR OTHER RACES > 60 ML/MIN (>=60 (CALC)); POTASSIUM 4.1 mmol/l (3.5-5.1); SGOT/AST 43 u/l (17-59); SODIUM 135 mmol/l (137-146)
[2021-09-17 12:04] LABS: BILIRUBIN, TOTAL 1.8 mg/dL (0.0-1.4)
[2021-09-17] MEDS ORDERED: ZPAK PO (13:01)
[2021-09-17] MEDS ORDERED: MOTRIN400 MG/TAB PO (13:01)
== END 2021-09-17 13:11 | disposition home or self-care (01) | DRG 553 ==
LOC: ED 10:18
PROVIDERS: Family Medicine
DX: M15.9 Polyosteoarthritis, unspecified (principal); J18.9 Pneumonia, unspecified organism; J44.0 Chronic obstructive pulmonary disease with (acute) lower respiratory infection; I11.0 Hypertensive heart disease with heart failure; I50.9 Heart failure, unspecified; K74.60 Unspecified cirrhosis of liver

== ENCOUNTER 2022-04-18 19:12 | Emergency (ER) | payer SELFPAY ==
[2022-04-18] VITALS (13 sets, daily range): BP systolic 122–146; BP diastolic 72–91
[~2022-04-18] VITALS: Ht 167.6 cm; Wt 86.0 kg
[~2022-04-18 19:12] MED LIST changes: +MOTRIN400 MG/TAB PO; +ZPAK PO
[2022-04-18 19:49] LABS: BASO% 0.5 % (0-3); EOS% 0.7 % (0-8); HEMATOCRIT 37.8 % (39.0-50.0); HEMOGLOBIN 12.5 g/dl (14.0-18.0); IMMATURE GRANULOCYTES 0.5 % (0.0-5.0); LYMPH% 14.8 % (15-41); MEAN CELL VOLUME 104.1 fL CALC (80.0-100.0); MEAN CORPUSCULAR HGB 34.4 pG CALC (26.0-32.0); MEAN CORPUSCULAR HGB CONC 33.1 g/dL CAL (32.0-36.0); MONO% 6.3 % (2-13); NEUT# 3.18 thou/uL (1.82-7.42); NEUT% 77.2 % (42-76); RED BLOOD COUNT 3.63 mill/uL (4.70-6.10); RED CELL DISTRI WIDTH 15.2 % (11.5-15.5)
[2022-04-18 20:02] LABS: ALBUMIN 3.2 g/dL (3.2-5.0); ALKALINE PHOSPHATASE 164 u/l (38-126); ANION GAP 10 (6-22 (CALC)); BILIRUBIN, TOTAL 1.7 mg/dL (0.0-1.4); BUN 6 mg/dL (9-20); BUN/CREATININE RATIO 9 (12-20 (CALC)); CARBON DIOXIDE 25 mmol/l (22-30); CHLORIDE 109 mmol/l (95-108); CREATININE 0.7 mg/dL (0.7-1.3); GFR FOR AFR.AMER. > 60 ML/MIN (>=60 (CALC)); GFR OTHER RACES > 60 ML/MIN (>=60 (CALC)); POTASSIUM 4.2 mmol/l (3.5-5.1); SGOT/AST 87 u/l (17-59); SODIUM 140 mmol/l (137-146)
[2022-04-18 20:10] LABS: ETHYL ALCOHOL 320 mg/dl (0-30)
[2022-04-18 23:39] LABS: URINE BILIRUBIN - DIPSTICK NEGATIVE (NEGATIVE); URINE BLOOD DIPSTICK MODERATE (NEGATIVE); URINE COLOR YELLOW; URINE GLUCOSE - DIPSTICK NEGATIVE (NEGATIVE); URINE KETONE NEGATIVE (NEGATIVE); URINE LEUK ESTERASE TRACE (NEGATIVE); URINE SPECIFIC GRAVITY 1.025; URINE UROBILINOGEN - DIPSTICK 0.2 E.U./dL (0.2)
[2022-04-18 23:44] LABS: URINE NITRITE - DIPSTICK NEGATIVE (Negative); URINE PROTEIN - DIPSTICK NEGATIVE (NEG-TRACE)
[2022-04-18 23:48] LABS: URINE BACTERIA MANY hpf; URINE EPITHELIAL CELLS FEW EPI/hpf (0-FEW)
[2022-04-18 23:49] LABS: URINE AMORPH SEDIMENT MANY hpf (NONE-FER)
[2022-04-18 23:56] LABS: INTERNATIONAL NORMALIZED RATIO 1.5 RATIO (0.7-1.3); PROTHROMBIN TIME 14.6 SECONDS (9.0-12.5)
[2022-04-19 00:37] VITALS: BP 129/73
== END 2022-04-19 00:39 | disposition short-term general hospital (02) | DRG 536 ==
LOC: ED 19:12 → EDBD 04-19 00:13 → ED 04-19 00:13
PROVIDERS: Emergency Medicine
DX: S72.142A Displaced intertrochanteric fracture of left femur, initial encounter for closed fracture (principal); W19.XXXA Unspecified fall, initial encounter; F10.129 Alcohol abuse with intoxication, unspecified

== ENCOUNTER 2022-05-06 12:51 | Emergency (ER) | payer SELFPAY ==
[~2022-05-06] VITALS: Ht 167.6 cm; Wt 104.0 kg
[2022-05-06] VITALS (17 sets, daily range): BP systolic 111–145; BP diastolic 61–86
[2022-05-06 14:08] LABS: BASO% 1.2 % (0-3); EOS% 5.3 % (0-8); HEMATOCRIT 32.5 % (39.0-50.0); LYMPH% 30.8 % (15-41); MEAN CELL VOLUME 106.6 fL CALC (80.0-100.0); MEAN CORPUSCULAR HGB 33.1 pG CALC (26.0-32.0); MEAN CORPUSCULAR HGB CONC 31.1 g/dL CAL (32.0-36.0); NEUT# 1.53 thou/uL (1.82-7.42); NEUT% 47.7 % (42-76); RED BLOOD COUNT 3.05 mill/uL (4.70-6.10); RED CELL DISTRI WIDTH 15.4 % (11.5-15.5)
[2022-05-06 14:10] LABS: HEMOGLOBIN 10.1 g/dl (14.0-18.0)
[2022-05-06 14:20] LABS: ALBUMIN 2.6 g/dL (3.2-5.0); ALKALINE PHOSPHATASE 228 u/l (38-126); ANION GAP 6 (6-22 (CALC)); BUN 6 mg/dL (9-20); BUN/CREATININE RATIO 11 (12-20 (CALC)); C-REACTIVE PROTEIN 3.6 mg/dL (0-0.9); CARBON DIOXIDE 25 mmol/l (22-30); CHLORIDE 109 mmol/l (95-108); CREATININE 0.6 mg/dL (0.7-1.3); GFR FOR AFR.AMER. > 60 ML/MIN (>=60 (CALC)); GFR OTHER RACES > 60 ML/MIN (>=60 (CALC)); POTASSIUM 3.7 mmol/l (3.5-5.1); SGOT/AST 49 u/l (17-59); SODIUM 137 mmol/l (137-146); TOTAL PROTEIN 7.1 g/dL (6.3-8.2)
[2022-05-06 14:34] LABS: BILIRUBIN, TOTAL 2.6 mg/dL (0.2-1.3)
[2022-05-06] MEDS ORDERED: KEFLEX500 MG PO (17:26)
== END 2022-05-06 17:50 | disposition home or self-care (01) | DRG 603 ==
LOC: ED 12:51
PROVIDERS: Nurse Practitioner
DX: L03.116 Cellulitis of left lower limb (principal); Z48.02 Encounter for removal of sutures

== ENCOUNTER 2022-06-02 13:56 | Emergency (ER) | payer SELFPAY ==
[~2022-06-02] VITALS: Ht 167.6 cm; Wt 70.0 kg
[~2022-06-02 13:56] MED LIST changes: +KEFLEX500 MG PO
[2022-06-02 15:13] LABS: BASO% 0.6 % (0-3); HEMATOCRIT 34.2 % (39.0-50.0); HEMOGLOBIN 11.1 g/dl (14.0-18.0); MEAN CELL VOLUME 100.6 fL CALC (80.0-100.0); MEAN CORPUSCULAR HGB 32.6 pG CALC (26.0-32.0); MEAN CORPUSCULAR HGB CONC 32.5 g/dL CAL (32.0-36.0); MONO% 15.1 % (2-13); NEUT# 1.91 thou/uL (1.82-7.42); NEUT% 55.3 % (42-76); RED BLOOD COUNT 3.4 mill/uL (4.70-6.10)
[2022-06-02 15:32] LABS: ALBUMIN 2.5 g/dL (3.2-5.0); ALKALINE PHOSPHATASE 180 u/l (38-126); ANION GAP 6 (6-22 (CALC)); BILIRUBIN, TOTAL 1.9 mg/dL (0.2-1.3); BUN 7 mg/dL (9-20); BUN/CREATININE RATIO 10 (12-20 (CALC)); C-REACTIVE PROTEIN 1.2 mg/dL (0-0.9); CARBON DIOXIDE 24 mmol/l (22-30); CHLORIDE 108 mmol/l (95-108); CREATININE 0.6 mg/dL (0.7-1.3); GFR FOR AFR.AMER. > 60 ML/MIN (>=60 (CALC)); GFR OTHER RACES > 60 ML/MIN (>=60 (CALC)); POTASSIUM 3.5 mmol/l (3.5-5.1); SGOT/AST 37 u/l (17-59); SODIUM 134 mmol/l (137-146); TOTAL PROTEIN 6.9 g/dL (6.3-8.2)
[2022-06-02] MEDS ORDERED: METHOCARBAMOL500 MG PO (16:49)
[2022-06-02] MEDS ORDERED: NAPROXEN500 MG PO (16:49)
[2022-06-02 17:25] VITALS: BP 142/82
== END 2022-06-02 17:30 | disposition home or self-care (01) | DRG 556 ==
LOC: ED 13:56
PROVIDERS: Nurse Practitioner
DX: M79.662 Pain in left lower leg (principal)

== ENCOUNTER 2022-08-29 16:16 | Inpatient (IN) | payer SELFPAY ==
[2022-08-29] VITALS (28 sets, daily range): BP systolic 95–165; BP diastolic 53–99
[~2022-08-29] VITALS: Ht 172.7 cm; Wt 92.0 kg
[~2022-08-29 16:16] MED LIST changes: +METHOCARBAMOL500 MG PO; +NAPROXEN500 MG PO
[2022-08-29 17:23] LABS: BASO% 0.2 % (0-3); HEMATOCRIT 33.3 % (39.0-50.0); LYMPH% 26.3 % (15-41); MEAN CELL VOLUME 96.8 fL CALC (80.0-100.0); MONO% 18.5 % (2-13); NEUT# 2.06 thou/uL (1.82-7.42); RED BLOOD COUNT 3.44 mill/uL (4.70-6.10); RED CELL DISTRI WIDTH 15.9 % (11.5-15.5)
[2022-08-29 17:38] LABS: ALBUMIN 2.9 g/dL (3.2-5.0); ALKALINE PHOSPHATASE 190 u/l (38-126); ANION GAP 13 (6-22 (CALC)); BILIRUBIN, TOTAL 2.6 mg/dL (0.2-1.3); BUN 3 mg/dL (9-20); BUN/CREATININE RATIO 5 (12-20 (CALC)); CARBON DIOXIDE 22 mmol/l (22-30); CHLORIDE 104 mmol/l (95-108); CREATININE 0.7 mg/dL (0.7-1.3); GFR FOR AFR.AMER. > 60 ML/MIN (>=60 (CALC)); GFR OTHER RACES > 60 ML/MIN (>=60 (CALC)); POTASSIUM 3.3 mmol/l (3.5-5.1); SGOT/AST 45 u/l (17-59); SODIUM 135 mmol/l (137-146); TOTAL PROTEIN 7.7 g/dL (6.3-8.2)
[2022-08-30 04:40] VITALS: BP 124/64
[2022-08-30 05:00] VITALS: BP 124/64
[2022-08-30 05:55] LABS: HEMATOCRIT 31.6 % (39.0-50.0); HEMOGLOBIN 10.3 g/dl (14.0-18.0); MEAN CELL VOLUME 98.4 fL CALC (80.0-100.0); MEAN CORPUSCULAR HGB 32.1 pG CALC (26.0-32.0); MEAN CORPUSCULAR HGB CONC 32.6 g/dL CAL (32.0-36.0); RED BLOOD COUNT 3.21 mill/uL (4.70-6.10); RED CELL DISTRI WIDTH 16.2 % (11.5-15.5)
[2022-08-30 06:27] LABS: ALBUMIN 2.8 g/dL (3.2-5.0); ALKALINE PHOSPHATASE 164 u/l (38-126); ANION GAP 8 (6-22 (CALC)); BILIRUBIN, TOTAL 2.5 mg/dL (0.2-1.3); BUN 5 mg/dL (9-20); BUN/CREATININE RATIO 9 (12-20 (CALC)); CARBON DIOXIDE 21 mmol/l (22-30); CHLORIDE 109 mmol/l (95-108); CREATININE 0.5 mg/dL (0.7-1.3); GFR FOR AFR.AMER. > 60 ML/MIN (>=60 (CALC)); GFR OTHER RACES > 60 ML/MIN (>=60 (CALC)); MAGNESIUM 1.8 mg/dL (1.6-2.3); POTASSIUM 3.7 mmol/l (3.5-5.1); SGOT/AST 64 u/l (17-59); SODIUM 135 mmol/l (137-146); TOTAL PROTEIN 7.3 g/dL (6.3-8.2)
[2022-08-30 07:45] VITALS: BP 128/70
[2022-08-30 17:04] VITALS: BP 143/77
[2022-08-30 19:14] VITALS: BP 130/62
[2022-08-31 04:59] LABS: HEMATOCRIT 32.2 % (39.0-50.0); HEMOGLOBIN 10.2 g/dl (14.0-18.0); MEAN CELL VOLUME 98.8 fL CALC (80.0-100.0); MEAN CORPUSCULAR HGB 31.3 pG CALC (26.0-32.0); MEAN CORPUSCULAR HGB CONC 31.7 g/dL CAL (32.0-36.0); RED BLOOD COUNT 3.26 mill/uL (4.70-6.10); RED CELL DISTRI WIDTH 16.4 % (11.5-15.5)
[2022-08-31 05:20] LABS: ALBUMIN 2.4 g/dL (3.2-5.0); ALKALINE PHOSPHATASE 156 u/l (38-126); ANION GAP 6 (6-22 (CALC)); BUN 6 mg/dL (9-20); BUN/CREATININE RATIO 10 (12-20 (CALC)); CARBON DIOXIDE 24 mmol/l (22-30); CHLORIDE 112 mmol/l (95-108); CREATININE 0.6 mg/dL (0.7-1.3); GFR FOR AFR.AMER. > 60 ML/MIN (>=60 (CALC)); GFR OTHER RACES > 60 ML/MIN (>=60 (CALC)); MAGNESIUM 1.8 mg/dL (1.6-2.3); POTASSIUM 3.2 mmol/l (3.5-5.1); SGOT/AST 32 u/l (17-59); SODIUM 139 mmol/l (137-146); TOTAL PROTEIN 6.8 g/dL (6.3-8.2)
[2022-08-31 06:37] VITALS: BP 132/70
[2022-08-31 15:02] VITALS: BP 117/63
[2022-08-31 19:08] VITALS: BP 128/72
[2022-09-01 07:09] VITALS: BP 154/83
[2022-09-01 08:00] VITALS: BP 154/83
[2022-09-01] MEDS ORDERED: OMNICEF300 MG PO (09:37)
[2022-09-01 09:53] LABS: HEMATOCRIT 33.4 % (39.0-50.0); HEMOGLOBIN 10.6 g/dl (14.0-18.0); MEAN CELL VOLUME 99.1 fL CALC (80.0-100.0); MEAN CORPUSCULAR HGB 31.5 pG CALC (26.0-32.0); MEAN CORPUSCULAR HGB CONC 31.7 g/dL CAL (32.0-36.0); RED BLOOD COUNT 3.37 mill/uL (4.70-6.10); RED CELL DISTRI WIDTH 16.6 % (11.5-15.5)
[2022-09-01 11:25] LABS: ALBUMIN 2.5 g/dL (3.2-5.0); ALKALINE PHOSPHATASE 149 u/l (38-126); ANION GAP 11 (6-22 (CALC)); BILIRUBIN, TOTAL 2.1 mg/dL (0.2-1.3); BUN 6 mg/dL (9-20); BUN/CREATININE RATIO 10 (12-20 (CALC)); CARBON DIOXIDE 22 mmol/l (22-30); CHLORIDE 109 mmol/l (95-108); CREATININE 0.6 mg/dL (0.7-1.3); GFR FOR AFR.AMER. > 60 ML/MIN (>=60 (CALC)); GFR OTHER RACES > 60 ML/MIN (>=60 (CALC)); POTASSIUM 3.4 mmol/l (3.5-5.1); SGOT/AST 37 u/l (17-59); SODIUM 139 mmol/l (137-146); TOTAL PROTEIN 6.9 g/dL (6.3-8.2)
[2022-09-01 12:07] VITALS: BP 154/83
== END 2022-09-01 14:23 | disposition home or self-care (01) | DRG 603 ==
LOC: ED 16:16 → ED-I 18:25 → ED 19:34 → MS2 19:35
PROVIDERS: Family Medicine; ADMIT Internal Medicine; ATTEND Internal Medicine
DX: L03.116 Cellulitis of left lower limb (principal); I87.312 Chronic venous hypertension (idiopathic) with ulcer of left lower extremity; L97.922 Non-pressure chronic ulcer of unspecified part of left lower leg with fat layer exposed; K76.6 Portal hypertension; I10 Essential (primary) hypertension; K70.31 Alcoholic cirrhosis of liver with ascites; D69.59 Other secondary thrombocytopenia; J44.9 Chronic obstructive pulmonary disease, unspecified; E88.09 Other disorders of plasma-protein metabolism, not elsewhere classified; D64.9 Anemia, unspecified; E87.6 Hypokalemia; B96.20 Unspecified Escherichia coli [E. coli] as the cause of diseases classified elsewhere
CPT/HCPCS: J0692; J1650

== ENCOUNTER 2022-09-12 18:47 | Emergency (ER) | payer SELFPAY ==
[~2022-09-12] VITALS: Ht 172.7 cm; Wt 99.9 kg
[~2022-09-12 18:47] MED LIST changes: +OMNICEF300 MG PO
[2022-09-12 19:20] VITALS: BP 113/71
[2022-09-12] MEDS ORDERED: OMNICEF300 M1 PO (19:39)
[2022-09-12 20:16] VITALS: BP 113/71
== END 2022-09-12 20:37 | disposition home or self-care (01) | DRG 300 ==
LOC: ED 18:47
DX: I87.312 Chronic venous hypertension (idiopathic) with ulcer of left lower extremity (principal); L97.829 Non-pressure chronic ulcer of other part of left lower leg with unspecified severity; T36.1X6A Underdosing of cephalosporins and other beta-lactam antibiotics, initial encounter; Z91.128 Patient's intentional underdosing of medication regimen for other reason

== ENCOUNTER 2022-12-08 13:04 | Emergency (ER) | payer SELFPAY ==
[~2022-12-08] VITALS: Ht 172.7 cm; Wt 108.9 kg
[2022-12-08] VITALS (7 sets, daily range): BP systolic 118–136; BP diastolic 63–82
[~2022-12-08 13:04] MED LIST changes: +OMNICEF300 M1 PO
[2022-12-08 14:08] LABS: ALBUMIN 2.3 g/dL (3.2-5.0); ALKALINE PHOSPHATASE 130 u/l (38-126); BASO% 0.3 % (0-3); BUN 21 mg/dL (9-20); BUN/CREATININE RATIO 16 (12-20 (CALC)); CARBON DIOXIDE 24 mmol/l (22-30); CHLORIDE 100 mmol/l (95-108); CPK 74 u/l (55-170); CREATININE 1.3 mg/dL (0.7-1.3); EOS% 3.1 % (0-8); GFR FOR AFR.AMER. > 60 ML/MIN (>=60 (CALC)); GFR OTHER RACES 56 ML/MIN (>=60 (CALC)); IMMATURE GRANULOCYTES 0.2 % (0.0-5.0); LYMPH% 12.1 % (15-41); MEAN CORPUSCULAR HGB 34.1 pG CALC (26.0-32.0); MEAN CORPUSCULAR HGB CONC 32.2 g/dL CAL (32.0-36.0); MONO% 22.8 % (2-13); NEUT# 3.97 thou/uL (1.82-7.42); NEUT% 61.5 % (42-76); POTASSIUM 3.8 mmol/l (3.5-5.1); RED BLOOD COUNT 2.26 mill/uL (4.70-6.10); RED CELL DISTRI WIDTH 17.5 % (11.5-15.5); TOTAL PROTEIN 6.2 g/dL (6.3-8.2)
[2022-12-08 14:12] LABS: ANION GAP 9 (6-22 (CALC)); BILIRUBIN, TOTAL 6.6 mg/dL (0.2-1.3); SGOT/AST 65 u/l (17-59); SODIUM 129 mmol/l (137-146)
[2022-12-08 14:14] LABS: ACT PARTIAL THROMBO TIME 28.3 SECONDS (20.0-32.5); INTERNATIONAL NORMALIZED RATIO 1.7 RATIO (0.7-1.3)
[2022-12-08 14:45] LABS: HEMATOCRIT 23.9 % (39.0-50.0); HEMOGLOBIN 7.7 g/dl (14.0-18.0); MEAN CELL VOLUME 105.8 fL CALC (80.0-100.0)
== END 2022-12-08 16:58 | disposition short-term general hospital (02) | DRG 536 ==
LOC: ED 13:04
PROVIDERS: Family Medicine
DX: S72.141A Displaced intertrochanteric fracture of right femur, initial encounter for closed fracture (principal); D68.9 Coagulation defect, unspecified; D64.9 Anemia, unspecified; K70.31 Alcoholic cirrhosis of liver with ascites; I87.8 Other specified disorders of veins; W19.XXXA Unspecified fall, initial encounter; Z20.822 Contact with and (suspected) exposure to COVID-19
CPT/HCPCS: S0164